=== PATIENT | male | born 1930 | race Caucasian/White ===

== ENCOUNTER 2018-01-17 06:41 | Observation (INO) | payer MEDICARE ==
[2018-01-17] MEDS ORDERED: Morphine VIAL* 4 MG/ML VIAL (1 ml vial) IV ONE (06:53)
[2018-01-17] MEDS ORDERED: Aspirin 81 mg CHEW TAB* 81 MG TAB.CHEW PO ONE (06:58)
--- OUTSIDE RECORDS SUMMARY | 2018-01-17 07:02 | XMS REPORT | Continuity of Care Document ---
:1930 External Reference #:[id number] Author Name Wade Bhumi Care Team Providers Name Role Phone Rc Hutton MD Primary Care Physician Unavailable Payers Type Date Identification Numbers Payment Provider Subscriber Effective: Policy Number: [id number] Medicare Milton Her 1995 PayID: [id number] [address] [place] [address] Policy Number: [id number] [facility] Milton Her PayID: [id number] [address] [place] [address] Advance Directives Description No Information Available Problems Date Description Provider Status Onset: 11/24/2016 Chest pain Tony Mckeon M.D., [facility], Active FASNC Onset: 02/10/2015 Chronic atrial fibrillation Tony Mckeon M.D., [facility], Active FASNC Onset: 02/10/2015 Electrocardiogram abnormal Tony Mckeon M.D., [facility], Active FASNC Family History Date Family Member(s) Problem(s) Comments General Coronary Artery Disease (CAD) Brother General Lung Cancer Father due to Unknown Causes () Father Alcoholism Mother due to Natural Causes () Second Brother due to Cancer, Lung () Fourth Brother 78 : (age 58 Years) First Sister due to Lung Cancer Social History Type Date Description Comments Sex Unknown Marital Status recently due to stage 4 cancer Marital Status Lives With Alone Occupation Retired Tobacco Use Start: Unknown End: Former Cigarette Smoker Unknown 1 Pack Daily Cigarette Use Quit - Age 54 Tobacco Use Start: Unknown Never Smoked Cigars Tobacco Use Start: Unknown Never Smoked A Pipe Smoking Status Reviewed: 01/04/18 Never Smoked A Pipe Smokeless Tobacco Never Used Smokeless Tobacco ETOH Use Rarely consumes alcohol Tobacco Use Start: Unknown End: Patient is a former Unknown smoker Recreational Drug Use Denies Drug Use Exercise Type/Frequency Exercises sporadically walking Allergies, Adverse Reactions, Alerts Date Description Reaction Status Severity Comments 10/04/2007 NKDA Active 09/14/2016 Seasonal Active 09/14/2016 Environmental Active Medications Medication Date Status Form Strength Qnty SIG Indications Ordering Provider Coumadin / Active Tablets 4mg 2.5mg mon, Unknown 0000 fri and then 4 mg tu, wed, thrus,sat, sun as directed ( adjusted Dr. Hutton) Latanoprost / Active Solution 0.005% 1 gtt both Unknown 0000 eyes at hs Metoprolol / Active Tablets ER 50mg 1 by mouth Unknown Succinate ER 0000 24HR every day Brimonidine / Active Solution 0.2% 1 drop to Unknown Tartrate 0000 each eye bid Dorzolamide / Active Solution 22.3-6.8mg 1 drop each Unknown HCL/Timolol 0000 /ml eye bid Maleate Multivitamin / Active Cap 1 cap po Unknown /Areds 0000 twice daily 2/Lute/Zeax Pravastatin / Active Tablets 40mg 1 tablet Unknown Sodium 0000 daily at bedtime Eylea / Active Solution 2mg/0.05ML injection Unknown 0000 every 6-12 weeks both eyes as directed Esomeprazole / Active Capsules 20mg 2 capsules Unknown Magnesium 0000 [address] by mouth at bed time Acetaminophen / Active Tablets 500mg 2 tabs 3 Unknown Extra Strength 0000 times daily as needed for pain Psyllium Husk / Active Powder Husk 95% 1 rounded Unknown 0000 tsp by mouth daily Calcium 600+D / Active Tablets 600-400mg- 1 by mouth Unknown High Potency 0000 Unit daily. Loratadine / Active Capsules 10mg once a day Unknown 0000 for allergies Lidocaine / Active Cream 4% apply to Unknown 0000 affected area 3 or 4 times daily prn Meclizine HCL / Active Chewtabs 25mg 1 tab every Unknown 0000 8 hours as needed for dizziness Zithromax Z-Chuy 12/25/ Hx Tablets 250mg 1Pack as per 465.9 Amaury E. 2008 - loco Amaya, M.D. 2014 Nexium 10/03/ Hx Capsules 40mg 90cap 1 PO qd Amaury Gaines 2007 - sudhir Amaya, M.D. 2014 Flomax 10/03/ Hx Caps ER 0.4mg 90cap 1 PO qd Amaury Gaines 2007 - 24HR sudhir Wrenie, M.D. 2007 Asa 10/03/ Hx 81mg 90uni 1 PO qd Amaury Gaines 2007 - ts Amaya, M.D. 2007 Multi-Vitamin 10/03/ Hx Tablets 90tab 1 PO qd Amaury Gaines 2007 - sudhir Amaya, M.D. 2015 Simvastatin / Hx Tablets 40mg 1 by mouth Unknown 0000 - every night 02/09/ at bedtime 2015 Esomeprazole / Hx 20mg 1 by mouth Unknown Sodium 0000 - every day 2016 Vitamin D3 High / Hx Capsules 500Units 1 by mouth Unknown Potency 0000 - twice daily 2016 Cetirizine HCL / Hx Tablets 10mg 1 by mouth Unknown 0000 - every day 2016 Triamcinolone / Hx Aerosol 55mcg/Act 1 spray Unknown Acetonide 0000 - each chacha 01/03/ every day 2017 Medications Administered in Office Medication Date Status Form Strength Qnty SIG Indications Ordering Provider Technetium TC Administered Injection Tony Pickard 99M 017 Ignacio Mckeon M.D., FACNuria, Per Unit Dose FASNC Up To 40 Millicuries Technetium TC Administered Injection Tony Pickard 99M 016 Ignacio Mckeon M.D., FACNuria, Per Unit Dose FASNC Up To 40 Millicuries Immunizations CPT Code Status Date Vaccine Lot # [id number] Given 02/15/1998 Pneumovax (History By Patient) 138iu Vital Signs Date Vital Result Comment 01/04/2018 10:09am Height 76 inches 6'4" Weight 235.00 lb w/o shoes Heart Rate 73 /min irreg BP Systolic Sitting 122 mmHg LA reg cuff BP Diastolic Sitting 80 mmHg LA reg cuff BP Systolic Standing 120 mmHg LA reg cuff BP Diastolic Standing 76 mmHg LA reg cuff Respiratory Rate 18 /min BMI (Body Mass Index) 28.6 kg/m2 11/24/2016 9:46am Height 76 inches 6'4" Weight 238.00 lb with shoes and sweatshirt Heart Rate 56 /min BP Systolic Sitting 138 mmHg Lue reg cuff BP Diastolic Sitting 70 mmHg Lue reg cuff BP Systolic Standing 132 mmHg Lue reg cuff BP Diastolic Standing 68 mmHg Lue reg cuff Respiratory Rate 16 /min BMI (Body Mass Index) 29.0 kg/m2 Ejection Fraction 50-55% echo 10/26/16 09/14/2016 3:56pm Height 76 inches 6'4" Heart Rate 79 /min BP Systolic Sitting 148 mmHg BP Diastolic Sitting 92 mmHg Respiratory Rate 16 /min Pain Level 0 O2 % BldC Oximetry 98 % 06/15/2016 1:31pm Height 76 inches 6'4" Weight 240.00 lb Heart Rate 76 /min irregular BP Systolic 138 mmHg BP Diastolic 94 mmHg Respiratory Rate 16 /min Pain Level 0 BMI (Body Mass Index) 29.2 kg/m2 03/16/2016 12:43pm Height 77 inches 6'5" Weight 240.00 lb with shoes Heart Rate 80 /min BP Systolic Sitting 140 mmHg Lue reg cuff BP Diastolic Sitting 80 mmHg Lue reg cuff BP Systolic Standing 140 mmHg LUe reg cuff BP Diastolic Standing 82 mmHg LUe reg cuff Respiratory Rate 17 /min BMI (Body Mass Index) 28.5 kg/m2 03/10/2015 9:48am Height 77 inches 6'5" Weight 235.50 lb w/o shoes Heart Rate 82 /min irreg BP Systolic Sitting 124 mmHg Rue, reg cuff BP Diastolic Sitting 74 mmHg Rue, reg cuff BP Systolic Standing 114 mmHg Rue BP Diastolic Standing 74 mmHg Rue Respiratory Rate 18 /min BMI (Body Mass Index) 27.9 kg/m2 Ejection Fraction 55-60% as of 02/11/15 echo 02/10/2015 12:28pm Height 77 inches 6'5" Weight 240.00 lb with shoes ( 235 lbs at home) Heart Rate 76 /min BP Systolic 130 mmHg Ra reg cuff BP Diastolic 80 mmHg Ra reg cuff BP Systolic Sitting 122 mmHg La reg cuff BP Diastolic Sitting 74 mmHg La reg cuff BP Systolic Standing 114 mmHg LA reg cuff BP Diastolic Standing 70 mmHg LA reg cuff Respiratory Rate 16 /min BMI (Body Mass Index) 28.5 kg/m2 12/25/2008 9:11am Heart Rate 76 /min BP Systolic Sitting 116 mmHg BP Diastolic Sitting 78 mmHg Body Temperature 99.0 F 01/24/2008 4:01pm Height 77 inches 6'5" Weight 242.00 lb Heart Rate 76 /min BP Systolic Sitting 142 mmHg BP Diastolic Sitting 72 mmHg BMI (Body Mass Index) 28.7 kg/m2 10/04/2007 11:10am Height 77 inches 6'5" Weight 236.00 lb Heart Rate 76 /min BP Systolic Sitting 154 mmHg BP Diastolic Sitting 84 mmHg BMI (Body Mass Index) 28.0 kg/m2 Results Test Date Facility Test Result H/L Range Note Laboratory test 04/09/2008 [facility] PSA,Diagnosti 0.0 NG/ML 0-[address] [place] [address] [phone] Ua Stat 11/25/2007 [facility] Ua Color YELLOW [address] [place] [address] [phone] Appearance-Urine CLEAR Specific [place]-Ur 1.020 1.010-1.030 Esterase-Urine TRACE Abnormal Negative Nitrite NEGATIVE Negative [id number]-Ch-EDP NEGATIVE Negative Protein-Urine NEGATIVE Negative PH-Urine 6.0 5-9 Blood-Urine 2+ Abnormal Negative Ketones-Urine NEGATIVE Negative Bilirubin-Ur NEGATIVE Negative Glucose-Urine NEGATIVE Negative Urinalysis W/Microscopic Stat 11/25/2007 [facility] Ua Color YELLOW [address] [place] [address] [phone] Appearance-Urine CLEAR Specific [place]-Ur 1.020 1.010-1.030 Esterase-Urine TRACE Abnormal Negative Nitrite NEGATIVE Negative Nezvhtuaqsfv-Qw-UDJ NEGATIVE Negative Protein-Urine NEGATIVE Negative PH-Urine 6.0 5-9 Blood-Urine 2+ Abnormal Negative Ketones-Urine NEGATIVE Negative Bilirubin-Ur NEGATIVE Negative Glucose-Urine NEGATIVE Negative WBC-Urine 20-25 Abnormal 0-5 RBC-Urine 10-15 Abnormal 0-2 Epith Cells-Ur RARE Bacteria-Urine 1+ Laboratory test 10/05/2007 [facility] Release Date 10/13/07 2, [address] [place] [address] [phone] Type & Screen 10/05/2007 [facility] Patient Blood A POSITIVE [address] [place] [address] [phone] Antibody Screen NEGATIVE Laboratory 10/05/2007 [facility] Whole [id number] A 4 test finding [address] Blood,Autologous <SEE NOTE> [place] [address] [facility] [phone] Hemoglobin/Hem 10/05/2007 [facility] Hemoglobin 15.0 g/dL 14. atacrit [address] 0-[address] [place] [address] 8.0 [phone] Hematocrit 43 % 42-52 Laboratory test 07/07/2007 [facility] PSA,Diagnostic 4.38 NG/ML High 0-[address] [place] [address] [phone] 1 * SERUM LEVELS OF PSA MEASURED USING THE RAGHAV LELO ACCESS HYBRITECH IMMUNOASSAY SHOULD NOT BE INTERPRETED ABSOLUTE EVIDENCE OF THE PRESENCE OR ABSENCE OF DISEASE. THE PSA VALUE SHOULD BE USED IN CONJUNCTION WITH OTHER PERTINENT CLINICAL DIAGNOSTIC PROCEDURES. A PSA value in the range of 0.1 to 0.6 ng/ml is indeterminate if being used as an indicator of recurrent or residual disease. . 2 SURGERY 10/11/07 3 ANY BLOOD NOT GIVEN WILL BE RELEASED AT 0700 ON THE ABOVE DATE UNLESS DOCTOR NOTIFIES LAB OTHERWISE. 4 [id number] AP [facility] TRANSFUSED 10/11/07 1221 5 * SERUM LEVELS OF PSA MEASURED USING THE RAGHAV LELO ACCESS HYBRITECH IMMUNOASSAY SHOULD NOT BE INTERPRETED ABSOLUTE EVIDENCE OF THE PRESENCE OR ABSENCE OF DISEASE. THE PSA VALUE SHOULD BE USED IN CONJUNCTION WITH OTHER PERTINENT CLINICAL DIAGNOSTIC PROCEDURES. Procedures Date Code Description Status 01/04/2018 77278 EKG Tracing & Interpretation Completed 11/24/2016 24084 EKG Tracing & Interpretation Completed 10/26/2016 78771 ECHO Transthoracic, Real-Time 2D With Doppler And Color Completed Flow 10/26/2016 91582 ECHO Transthoracic, Real-Time 2D With Doppler And Color Completed Flow 10/04/2016 80103 Stress Test Completed 10/04/2016 84007 Myocardial Perfusion Imaging Tomographic (Spect) Multiple Completed Studies 03/16/2016 95302 EKG Tracing & Interpretation Completed 03/10/2016 56143 ECHO Transthoracic, Real-Time 2D With Doppler And Color Completed Flow 03/03/2015 93179 Stress Test Completed 03/03/2015 99757 Myocardial Perfusion Imaging Tomographic (Spect) Multiple Completed Studies 02/11/2015 70282 ECHO Transthoracic, Real-Time 2D With Doppler And Color Completed Flow 02/10/2015 14346 EKG Tracing & Interpretation Completed 10/04/2007 97993 EKG Tracing & Interpretation Completed Encounters Type Date Location Provider Dx Diagnosis Office Visit 01/04/2018 [facility] Tony Pickard I48.2 Chronic atrial 10:45a Of Kiara Mckeon M.D., fibrillation [facility], [place] Office Visit 11/24/2016 [facility] Tony Pickard R07.9 Chest pain, 10:15a Of Kiara Mckeon M.D., unspecified FACC, FASNC I48.2 Chronic atrial fibrillation Office Visit 09/14/2016 3:45p [facility], H92.01 Otalgia, right C.M.A. AT M.D. ear Amoret H93.13 Tinnitus, bilateral R42 Dizziness and giddiness Office Visit 06/15/2016 1:30p [facility], H92.01 Otalgia, right C.M.A. AT M.D. ear Amoret H93.13 Tinnitus, bilateral H61.23 Impacted cerumen, bilateral R42 Dizziness and giddiness Office Visit 03/16/2016 [place] Tony Pickard I48.2 Chronic atrial 1:00p Cardiology Brandie Mckeon M.D., fibrillation [facility] FACNuria, FASLYDIA Office Visit 03/10/2015 Johnnie Pickard I48.2 Chronic atrial 10:00a [facility] Visit 02/10/2015 Johnnie Pickard R94.31 Abnormal 1:00p Cardiology Brandie Mckeon M.D., electrocardiogram [facility] [EKG] I48.2 Chronic atrial fibrillation Office Visit 12/25/2008 9:00a DO Not Use Kiara Gaines 465.9 URI Upper AT Mino Conde M.D. Respiratory Infections Acute Unspec Sites Office Visit 01/24/2008 3:30p [place] Jerome Gaines 723.1 [facility] AT Erika Conde [facility] Office Visit 10/04/2007 11:00a [place] Jerome Gaines V72.81 Examination Assoc AT Erika Conde [facility] Cardiovascular 530.81 Esophageal Reflux 723.1 Cervicalgia Plan of Treatment 01/04/2018 - Tony Mckeon M.D., [facility], YLYTZZ49.2 Chronic atrial fibrillationComments:As discussed, I feel your heart is doing well. Please continue to exercise.Follow up:one year
--- NOTE | 2018-01-17 07:14 | ED ---
HPI Chest Pain - HPI Summary HPI Summary: Patient is a 87yo M with a PMH of HTN,A fib, pulmonary nodules and prostatectomy presenting to the ED with acute onset chest pain (ache) worse with breathing at 3:30a which then began to radiate to the R shoulder to the R elbow. Approximately 1 hour later, he developed aching pain between his shoulder blades. Despite 3 nitros and 324 chewable aspirin via EMS, his symptoms remain. He states his last echocardiogram was approximately 2 years ago and is due for one in the next few months. Symptoms are worse with breathing deep and he also endorses shortness of breath. Symptoms are also worsened with exertion and better with rest. Symptoms are not changed with positioning. - History of Current Complaint Chief Complaint: EDChestPainROMI Time Seen by Provider: 01/17/18 06:45 Hx Obtained From: Patient Onset/Duration: Started Hours Ago Timing: Constant Initial Severity: Moderate Current Severity: Moderate Pain Intensity: 8 Pain Scale Used: 0-10 Numeric Chest Pain Location: Discrete at: - misternal radiating to the left shoulder MRI Chest Pain Radiates: Yes Chest Pain Radiates To:: Back, Shoulder, Arm Character: Dull/Aching, Pressure/Squeezing Alleviating Factor(s): Nothing - Allergy/Home Medications Allergies/Adverse Reactions: Allergies Allergy/AdvReac Type Severity Reaction Status Date / Time No Known Allergies Allergy Verified 01/17/18 07:55 Home Medications: Home Medications Brimonid/Timolol 0.2/0.5%(NF) [Combigan 0.2/0.5% (NF)] 1 drop BOTH EYES BID 12/25 [History Confirmed 01/17/18] Meclizine TAB* [Antivert 12.5 TAB*] 12.5 mg PO QID 01/17/18 [History Confirmed 01/17/18] PMH/Surg Hx/FS Hx/Imm Hx Previously Healthy: Yes Endocrine/Hematology History: Denies: Hx Diabetes, Hx Systemic Lupus Erythematosus Cardiovascular History: Reports: Other Cardiovascular Problems/Disorders - ATRIAL FIBRILLATION- ON COUMADIN FOR- LAST DOSE ON 06/03/14 Denies: Hx Congestive Heart Failure, Hx Hypertension, Hx Pacemaker/ICD Respiratory History: Denies: Hx Asthma GI History: Reports: Hx Gastroesophageal Reflux Disease - ON MEDICATION FOR, Hx Hiatal Hernia History: Denies: Hx Dialysis, Hx Renal Disease Musculoskeletal History: Reports: Hx Arthritis - NECK Denies: Hx Rheumatoid Arthritis, Hx Osteoporosis Sensory History: Reports: Hx Cataracts - BILATERAL, Hx Contacts or Glasses - GLASSES, Hx Glaucoma - BILATERAL Denies: Hx Hearing Aid Opthamlomology History: Reports: Hx Cataracts - BILATERAL, Hx Contacts or Glasses - GLASSES, Hx Glaucoma - BILATERAL Psychiatric History: Denies: Hx Panic Disorder - Cancer History Cancer Type, 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 Hx Chemotherapy: No - Surgical History Surgery Procedure, Year, and Place: prostate removal 2007; tonisllectomy at age 8; broken jaw while serving in the [employer] on the jaw; RT knee arthroscopic procedure for meniscus. CATARACTS BILATERAL Hx Anesthesia Reactions: No - Immunization History Hx Pertussis Vaccination: No Immunizations Up to Date: Yes Infectious Disease History: No Infectious Disease History: Denies: Traveled Outside the [place] in Last 30 Days - Social History Occupation: Unemployed, Retired Lives: Alone Alcohol Use: Rare Hx Substance Use: No Substance Use Type: Reports: None Hx Tobacco Use: Yes Smoking Status (MU): Former Smoker Amount Used/How Often: 1 1/2 PPD X 25 YEARS+ Review of Systems Constitutional: Negative Negative: Fever, Chills, Fatigue, Skin Diaphoresis Positive: Chest Pain. Negative: Palpitations Positive: Shortness Of Breath. Negative: Cough Genitourinary: Negative Positive: no symptoms reported, see HPI Negative: Arthralgia, Myalgia Skin: Negative All Other Systems Reviewed And Are Negative: Yes Physical Exam Triage Information Reviewed: Yes Vital Signs On Initial Exam: Initial Vitals Pulse Resp BP Pulse Ox 90 5 143/90 98 01/17/18 06:45 01/17/18 06:45 01/17/18 06:45 01/17/18 06:45 Vital Signs Reviewed: Yes Appearance: Positive: Well-Appearing, Well-Nourished Skin: Positive: Skin Color Reflects Adequate Perfusion Head/Face: Positive: Normal Head/Face Inspection Neck: Positive: Supple Respiratory/Lung Sounds: Positive: Clear to Auscultation, Breath Sounds Present Cardiovascular: Positive: IRR. Negative: Leg Edema Left, Leg Edema Right Musculoskeletal: Positive: Normal, Strength/ROM Intact Neurological: Positive: Sensory/Motor Intact Psychiatric: Positive: Normal Diagnostics - Vital Signs Vital Signs Temp Pulse Resp BP Pulse Ox 01/17/18 07:00 88 19 95 01/17/18 06:47 99 22 97 01/17/18 06:46 97.9 F 64 14 143/90 97 01/17/18 06:45 90 5 143/90 98 - Laboratory Result Diagrams: 01/17/18 07:02 01/17/18 07:02 Lab Statement: Any lab studies that have been ordered have been reviewed, and results considered in the medical decision making process. Chest Pain Course/Dx - Course Course Of Treatment: Patient's evaluated for mid sternal aching chest pressure radiating to the left arm without associated jaw pain or nausea. He is also endorsing shortness of breath and pain to the back in between the shoulder blades. Symptoms have been present times approximately 4 hours. Labs obtained which are unremarkable including a troponin of 0.00. Chest x-ray obtained which shows COPD. Pleural calcification most pronounced along the right lower lung similar to previous CT examination. Questionable airspace disease at the right lower lung which is partially obscured by the pleural calcification. On physical examination, patient appears well, irregular rate and rhythm, crackles in the right lower lung, no abdominal pain on deep palpation. He is given 4 mg morphine in the ED with minimal relief. Discussed case with Dr. Mauricio who agrees to see and admit patient. - Diagnoses Provider Diagnoses: Chest pain - Provider Notifications Discussed Care Of Patient With: Ronald Mauricio Discharge - Sign-Out/Discharge Documenting (check all that apply): Patient Departure - Discharge Plan Condition: Stable Disposition: ADMITTED TO [facility] - Billing Disposition and Condition Condition: STABLE Disposition: Admitted to [facility]
[2018-01-17 07:23] LABS: ABS Basophils 0.1 10^3/ul (0-0.2); ABS Eosinophils 0.2 10^3/ul (0-0.6); ABS Lymphocytes 0.9 10^3/ul (1.0-4.8); ABS Monocytes 0.8 10^3/ul (0-0.8); ABS Neutrophils 7.8 10^3/ul (1.5-7.7); ABS Nucleated RBC 0 10^3/ul; Eosinophil % 1.9 %; Hematocrit 45 % (42-52); Hemoglobin 14.7 g/dl (14.0-18.0); Lymphocyte % 8.9 %; Mean Corpuscular HGB Conc 32 g/dl (31-36); Mean Corpuscular Hemoglobin 29 pg (27-31); Mean Corpuscular Volume 90 fL (80-94); Mean Platelet Volume 10.3 fL (7.4-10.4); Nucleated Red Blood Cells % 0; Platelet Count 159 10^3/ul (150-450); Red Blood Count 5.05 10^6/ul (4.00-5.40); Red Cell Distribution Width 15 % (10.5-15); White Blood Count 9.7 10^3/ul (3.5-10.8)
[2018-01-17 07:40] LABS: INR 2.64 (0.77-1.02)
[2018-01-17 08:15] LABS: EGFR Non-African American 81.2 (>60)
[2018-01-17] MEDS ORDERED: Magnesium Hydroxide LIQ* 30 ML UDC PO PRN (10:11)
[2018-01-17] MEDS ORDERED: Acetaminophen TAB* 325 MG PO PRN (10:11)
--- NOTE | 2018-01-17 14:11 | HP ---
AMENDED REPORT NOW INCLUDES DESIGNATED COSIGNER CC: Dr. Rc Hutton * HISTORY AND PHYSICAL: DATE OF ADMISSION: 01/17/18 PROVIDER: Heather Mckeon NP ATTENDING PHYSICIAN: Dr. Mauricio * (dictated by Heather Mckeon NP). PRIMARY CARE PHYSICIAN: Dr. Rc Hutton. CHIEF COMPLAINT: Chest pain. HISTORY OF PRESENT ILLNESS: Mr. Her is an 87-year-old male with a past medical history of AFib, on Coumadin; hypertension; history of pulmonary nodules with a negative biopsy in 2016; prostate cancer, status post prostatectomy; and GERD, who presented to the ED today after experiencing chest pain that woke him from sleep. He describes the pain as an aching in his left chest that radiated to his back and down his left arm to his elbow. The pain is worse with deep breath, but not with position change, movement or palpation. The patient denied nausea, diaphoresis, shortness of breath, palpitations, heart racing. He denies any lower extremity edema or shortness of breath with exertion and he is able to climb stairs regularly without chest pain or shortness of breath. The patient was in his usual state of health prior to this incident with no fever or chills, no cough, no abdominal pain or recent illness. Of note, the patient did receive nitro and aspirin from EMS and his symptoms persisted at that time. In the ED, the patient's vital signs were stable. He had an EKG, which showed known AFib with no evidence of ischemia or infarction. He has had troponins, which were negative x2 and a D-dimer, which was negative. The hospitalist team was asked to admit this patient for further workup of his chest pain. By the time of my examination, the patient's chest pain had improved to a 2/10 with morphine and was no longer radiating to his back or down his arms, but was now localized to the left side of his chest. The patient will undergo a stress test tomorrow. PAST MEDICAL HISTORY: 1. AFib, on Coumadin. 2. Hypertension. 3. Pulmonary nodules with a negative biopsy in 2016. 4. Prostate cancer, status post prostatectomy. 5. GERD. PAST SURGICAL HISTORY: Prostatectomy, tonsillectomy as a child, jaw surgery, and right knee arthroscopic procedure. HOME MEDICATIONS: 1. Warfarin 2 mg p.o. q.p.m. on Tuesday and Tuesday. 2. Warfarin 4 mg p.o. q.p.m. on Tuesday, Tuesday, Tuesday, , Tuesday 3. Pravastatin 20 mg p.o. at bedtime. 4. Toprol-XL 50 mg p.o. q.p.m. 5. Meclizine 12.5 mg p.o. 4 times daily as needed. 6. Xalatan 0.005% one drop both eyes at bedtime. 7. Nexium 40 mg p.o. at bedtime. 8. Cosopt 1 drop both eyes b.i.d. 9. Combigan 1 drop both eyes b.i.d. 10. AREDS2 one cap p.o. b.i.d. 11. Acetaminophen 325 mg p.o. q.6 hours p.r.n. ALLERGIES: The patient has no known allergies. FAMILY HISTORY: The patient has a brother who has had multiple stents. The patient has no diabetes in his family and the patient's sister and brother both have a history of lung cancer. SOCIAL HISTORY: The patient is a former smoker and quit in 1984. He smoked 1-1 /2 packs per day for 25 years. The patient endorses rare alcohol use and the patient would like to be a full code. His medical decision makers are his daughter, Betty Pepper and son, Neri Her. REVIEW OF SYSTEMS: I performed a 14-point review of systems. All the pertinent positives and negatives are mentioned in the history of present illness. The remaining review of systems are negative. PHYSICAL EXAMINATION GENERAL APPEARANCE: The patient is alert, pleasant, and appears to be in no acute distress. VITAL SIGNS: Temperature 98.7, heart rate 100, respiratory rate 20, oxygen saturation 93% on room air, blood pressure 140/80. HEENT: Normocephalic, atraumatic. Pupils are equal, round, and reactive to light and accommodation. EOMs are intact. NECK: Supple. No lymphadenopathy noted. No JVD appreciated. RESPIRATORY: No accessory muscle use. Lungs are clear to auscultation. Normal work of breathing. CARDIAC: Irregular rate and rhythm. S1 and S2 are present. There are no murmurs, rubs, or gallops heard. ABDOMEN: Soft, nontender, nondistended. Bowel sounds x4. EXTREMITIES: No lower extremity edema. DP and PT pulses are 2+ and symmetric. MUSCULOSKELETAL: No clubbing or cyanosis noted. The patient exhibited 5/5 strength in all 4 extremities. NEURO: The patient is alert and oriented x3. PSYCH: The patient is calm and cooperative. SKIN: There are no rashes or abnormalities seen. DIAGNOSTIC STUDIES/LAB DATA: Sodium 139, potassium 4.4, chloride 105, carbon dioxide 27, anion gap 7, BUN 20, creatinine 0.89, glucose 121, lactic acid 1.7, calcium 9.4, mag 2.0. Total bili 0.6, AST 17, ALT 11, alk phos 60. CK-MB 2.3, troponin 0 on 2 occasions, BNP 154. Total protein 6.3, albumin 3.7, globulin 2.6, albumin/globulin ratio 1.4. TSH 1.59. INR 2.64, on Coumadin; PTT 48.2; D- dimer less than 200. White blood cell count 9.7, hemoglobin 14.7, hematocrit 45 , platelets 159. Diagnostics: Chest x-ray, impression: COPD, pleural calcification most pronounced along the right lower lung similar to previous CT examination, questionable airspace disease of the right lower lung, which is partially obscured by pleural calcification. EKG: EKG with AFib. No evidence of ischemia or infarctions. ASSESSMENT: The patient is an 87-year-old male with a past medical history significant for atrial fibrillation, on Coumadin; hypertension; pulmonary nodules, who presented to the ED with left-sided chest pain and will be admitted to the hospitalist service for further cardiac workup. PLAN: 1. Chest pain. Pulmonary embolism has been ruled out with negative D-dimer. While the chest x-ray suggested there might be some questionable airspace disease in the right lower lung, the patient has no fever, no white count and no symptoms suggestive of respiratory infection, so this is less likely at this time. The patient will be admitted and monitored on telemetry. He will have an additional troponin and EKG to complete the set of 3 serial measurements. Initial troponins have been negative and initial EKG has not showed any acute changes. The patient will undergo a stress test in the morning. The patient's pain was relieved with morphine in the ED and he can continue to receive this as needed if the pain returns. 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 He did have a negative stress test in September 2016. His last echo was October 2016, which showed a normal sized LV with an EF of 50% to 55% with severe left atrial dilation and [id number] RV dilation. Please see the report in [employer] for a full description. 2. AFib. The patient is rate controlled on metoprolol. I will continue this. The patient is anticoagulated on Coumadin and I will continue this as well. His INR is therapeutic and we will continue to do daily INRs. 3. History of pulmonary nodules. Chest x-ray showed pleural calcifications along the right lower lung, which was similar to previous CT examination in 2016. The patient did have a lung biopsy in 2016, which showed no evidence of malignancy. The patient can consider additional outpatient monitoring; however, the chest x-ray does not appear to show any new nodules. 4. History of GERD. Continue Nexium. 5. Diet: The patient can be on a heart-healthy diet without caffeine. Prior to his stress test, he should be n.p.o. after midnight for stress test in the morning. 6. DVT prophylaxis: The patient is on Coumadin and can have SCDs. 7. Code status: The patient is full code. 8. Disposition: Observation. Anticipate discharge to home when medically stable. TIME SPENT: Time spent for this admission was 60 minutes and 35 minutes were spent with the patient discussing medications, past medical history and events leading up to their arrival today and performing a physical exam. The case has been reviewed with the attending, Dr. Mauricio, who agrees with the plan of care. HEATHER MCKEON, NBA [id number]/[facility] #: [id number] LUANN
[2018-01-17] MEDS ORDERED: Warfarin TAB(*) 4 MG PO SCH (17:00)
[2018-01-17] MEDS ORDERED: Nitroglycerin 0.2 MG/HR PATCH* (5 MG) TRANSDERM SCH (18:00)
[2018-01-17] MEDS ORDERED: Metoprolol Succinate XL TAB* 50 MG PO SCH (18:00)
[2018-01-17] MEDS: Morphine VIAL* 4 MG/ML VIAL (1 ml vial) IV PRN (18:05)
[2018-01-17] MEDS: [UNRECOGNIZED DRUG - OTHER] BOTH EYES SCH (20:31)
[2018-01-17] MEDS: TIMOLOL BOTH EYES SCH (20:31)
[2018-01-17] MEDS: BRIMONID BOTH EYES SCH (20:31)
[2018-01-17] MEDS ORDERED: Omeprazole CAP* 20 MG PO SCH (21:00)
[2018-01-17] MEDS ORDERED: Latanoprost 0.005%* 2.5 ml BTL BOTH EYES SCH (21:00)
[2018-01-17] MEDS ORDERED: Atorvastatin* 10 MG TAB PO SCH (21:00)
[2018-01-17] MEDS: Analgesic BALM* 114 GM TOPICAL PRN (23:12)
[2018-01-18] MEDS: Morphine VIAL* 4 MG/ML VIAL (1 ml vial) IV PRN (02:46)
[2018-01-18] MEDS: Analgesic BALM* 114 GM TOPICAL PRN (02:51)
[2018-01-18] MEDS ORDERED: Nitro Patch/OINT Remove PATCH OFF SCH (06:00)
[2018-01-18 06:26] LABS: INR 3.29 (0.77-1.02)
[2018-01-18 06:46] LABS: EGFR Non-African American 78.2 (>60)
[2018-01-18] MEDS: TIMOLOL BOTH EYES SCH (07:38)
[2018-01-18] MEDS: BRIMONID BOTH EYES SCH (07:38)
[2018-01-18] MEDS: [UNRECOGNIZED DRUG - OTHER] BOTH EYES SCH (07:39)
[2018-01-18] MEDS ORDERED: Regadenoson* 0.4 MG/5 ML SYRINGE ONE (10:47)
[2018-01-18] MEDS ORDERED: Aminophylline IV* 25 MG/ML 10 ML VIAL ONE (10:47)
--- NOTE | 2018-01-18 14:09 | PN ---
Subjective Date of Service: 01/18/18 Interval History: Pt resting comfortably in chair, NAD. Reports chest pain has resolved entirely. No chest pain with respiration, palpation, or position change. Last morphine was 2:46 am. Denies shortness of breath, cough, dizziness, headache, abdominal pain, nausea/vomiting, diarrhea, numbness or tingling in extremities. Objective Active Medications: Acetaminophen (Tylenol Tab*) 650 mg PO Q4H PRN PRN Reason: FEVER/PAIN Last Admin: 01/17/18 17:19 Dose: 650 mg Atorvastatin Calcium (Lipitor*) 5 mg PO BEDTIME [facility] Last Admin: 01/17/18 20:28 Dose: 5 mg Brimonidine/Timolol (Combigan 0.2/0.5% (Nf)) 1 drop BOTH EYES BID [facility] Last Admin: 01/18/18 07:38 Dose: Not Given Latanoprost (Xalatan 0.005%*) 1 drop BOTH EYES BEDTIME [facility] Last Admin: 01/17/18 20:27 Dose: 1 drop Magnesium Hydroxide (Milk Of Fabmelinda Liq*) 30 ml PO Q4H PRN PRN Reason: CONSTIPATION Metoprolol Succinate (Toprol Xl Tab*) 50 mg PO QPM [facility] Last Admin: 01/17/18 17:16 Dose: 50 mg Morphine Sulfate (Morphine Vial*) 2 mg IV Q4H PRN PRN Reason: PAIN - MODERATE TO SEVERE Last Admin: 01/18/18 02:46 Dose: 2 mg Multi-Ingredient Liniment/Rub (Messi Castro*) 1 applic TOPICAL TID PRN PRN Reason: PAIN Last Admin: 01/18/18 02:51 Dose: 1 admin Nitroglycerin (Nitroglycerin 5 Mg Patch*) 1 patch TRANSDERM DAILY@1800 [facility] Last Admin: 01/17/18 18:05 Dose: 1 patch Non-Formulary Medication (Dorzolamide Hcl-Timolol Maleat [Cosopt Pf]) 1 drop BOTH EYES BID [facility] Last Admin: 01/18/18 07:39 Dose: Not Given Omeprazole (Prilosec Cap*) 20 mg PO BEDTIME [facility] Last Admin: 01/17/18 20:29 Dose: 20 mg Pharmacy Profile Note (Nitro Patch/Oint Remove*) 1 note PATCH OFF 0600 [facility] Last Admin: 01/18/18 05:00 Dose: 1 patch Warfarin Sodium (Coumadin Tab(*)) 2 mg PO MoFr@1700 [facility] Warfarin Sodium (Coumadin Tab(*)) 4 mg PO SuTuWeThSa@1700 [facility] Last Admin: 01/17/18 17:16 Dose: 4 mg Vital Signs - 8 hr 01/18/18 07:38 Temperature 97.8 F Pulse Rate 53 Respiratory 18 Rate Blood Pressure 126/78 (mmHg) O2 Sat by Pulse 98 Oximetry Oxygen Devices in Use Now: None Eyes: No Scleral Icterus, PERRLA Ears/Nose/Mouth/Throat: NL Teeth, Lips, Gums Neck: NL Appearance and Movements; NL JVP Respiratory: Symmetrical Chest Expansion and Respiratory Effort, Clear to Auscultation Cardiovascular: NL Sounds; No Murmurs; No JVD, No Edema, - - Irregular rate and rhythm Abdominal: NL Sounds; No Tenderness; No Distention Extremities: No Edema Skin: No Rash or Ulcers Neurological: Alert and Oriented x 3, NL Muscle Strength and Tone Nutrition: Taking PO's Result Diagrams: 01/17/18 07:02 01/18/18 05:47 Assess/Plan/Problems-Billing Assessment: 87 year old male presented to ED with left sided chest pain that radiated to left arm and back. Neg trop and EKG x3. Low risk stress test. Chest pain has resolved. - Patient Problems (1) Chest pain Current Visit: Yes Status: Acute Code(s): R07.9 - CHEST PAIN, UNSPECIFIED SNOMED Code(s): 50884977 Comment: - Now resolved. Differentials include cardiac vs respiratory vs msk - Trop neg x3, EKG without acute ischemic changes, low risk stress test, cardiac origin unlikey - CXR with stable airspace disease similar to prior CT. No fever, white count or symptoms to suspect respiratory infection. Negative D-dimer, so PE unlikely. - MSK: pt does have history of arthritis, so this could represent arthritic pain. Will do shoulder XR to further evaluate. (2) Afib Current Visit: Yes Status: Acute Code(s): I48.91 - UNSPECIFIED ATRIAL FIBRILLATION SNOMED Code(s): 23509991 Comment: - Rate controlled on metoprolol - Anticuagulated with coumadin (3) GERD (gastroesophageal reflux disease) Current Visit: Yes Status: Acute Code(s): K21.9 - GASTRO-ESOPHAGEAL REFLUX DISEASE WITHOUT ESOPHAGITIS SNOMED Code(s): 862823110 Comment: - Continue nexium (4) DVT prophylaxis Current Visit: Yes Status: Acute Code(s): HGH8277 - SNOMED Code(s): 184336907 Comment: - On coumadin (5) Full code status Current Visit: Yes Status: Acute Code(s): Z78.9 - OTHER SPECIFIED HEALTH STATUS SNOMED Code(s): 749659875 Status and Disposition: Likely discharge today
[2018-01-18 15:19] VITALS: BP 125/76
--- NOTE | 2018-01-19 08:48 | DS ---
CC: Dr. Rc Hutton; Dr. Mckeon * DISCHARGE SUMMARY: DATE OF ADMISSION: DATE OF DISCHARGE: 01/18/18 PROVIDER: Heather Mckeon NP ATTENDING IN THE HOSPITAL: Dr. Mauricio * (dictated by Heather Mckeon NP). PRIMARY CARE PROVIDER: Dr. Rc Hutton. OUTPATIENT FIRST COAT OPERATOR: Dr. Mckeon. PRIMARY DIAGNOSIS: Chest pain. SECONDARY DIAGNOSES: 1. Atrial fibrillation. 2. Pulmonary nodules. 3. Gastroesophageal reflux disease. MEDICATIONS ON DISCHARGE: 1. Warfarin 2 mg p.o. Tuesday and Tuesday. 2. Warfarin 4 mg p.o. Tuesday, Tuesday, Tuesday, , and Tuesday. 3. Pravastatin 20 mg p.o. at bedtime. 4. Metoprolol succinate 50 mg p.o. q.p.m. 5. Meclizine 12.5 mg p.o. four times a day p.r.n. 6. Xalatan 0.005% one drop both eyes at bedtime. 7. Nexium 40 mg p.o. at bedtime. 8. Cosopt 1 drop both eyes b.i.d. 9. Combigan 1 drop both eyes b.i.d. 10. AREDS2 one cap p.o. b.i.d. 11. Acetaminophen 325 mg p.o. q.6 hours p.r.n. DIAGNOSTICS WHILE IN THE HOSPITAL: 1. Chest x-ray: COPD, pleural calcification was pronounced along the right lower lung, similar to previous CT examination, questionable airspace disease of the right lower lung, which is partially obscured by the pleural calcification. 2. Nuclear medicine scan, impression: No compelling evidence for stress- induced ischemia, fixed thinning of the apex, which may be physiologic or reflect previous infarct, hypokinesia of the septum, normal range estimated LVEF and upper normal range end- diastolic volume. 3. Shoulder x-ray of the left shoulder, impression: [id number] osteoarthritic change. HOSPITAL COURSE: Mr. Her is an 87-year-old male with a past medical history of AFib, on Coumadin; history of pulmonary nodules with a negative biopsy in 2016; prostate cancer, status post prostatectomy; GERD, who presented to the ED yesterday after experiencing chest pain that woke him from sleep. He described the pain as an aching in the left side of his chest that radiated to his left shoulder and the upper part of his left arm as well as to his back. The pain was made worse with a deep breath, but did not change with changes in position and did not get worse with palpation. The patient was given nitro by EMS, which did not improve the pain. In the ED the patient denied any shortness of breath, nausea, diaphoresis, palpitations, heart racing, lower extremity edema, or shortness of breath with exertion. The patient was in his usual state of health prior to this with no cough, fevers, chills, nausea, vomiting, diarrhea. The patient had troponins, which were negative x3 as well as EKGs, which showed his known AFib without evidence of ischemia or infarction. The patient did eventually achieve pain relief with morphine and was scheduled for a stress test in the morning. The patient did undergo this test, which showed no compelling evidence for stress-induced ischemia and an assessment of low risk based on nuclear portion (see above for summary). At the time of my exam after the patient's stress test, the patient was no longer endorsing any chest pain at rest, with exertion, or with deep breath. His last dose of morphine was over 12 hours ago, so was no longer providing pain relief. Initial differentials included PE and pneumonia, but the patient had a negative D-dimer and had no respiratory symptoms and no consolidation on CXR, making these less likely. Also on the differential was musculoskeletal pain. I did also do a shoulder x-ray, which demonstrated osteoarthritis and this could be a likely source of the patient's pain. DISPOSITION: The patient is stable for discharge to home. DIET: The patient should follow a heart-healthy diet. ACTIVITY: Activity as tolerated. FOLLOWUP: The patient is instructed to follow up with his primary care physician in 4 to 7 days. TIME SPENT: Time spent on this discharge was 35 minutes. HEATHER MCKEON NP [id number]/[facility] #: [id number] MTDThai
[2018-01-20] MEDS ORDERED: Warfarin TAB(*) 2 MG PO SCH (17:00)
== END 2018-01-18 17:29 | disposition home or self-care (01) ==
LOC: ED 06:41 → MEDTELE 10:11
PROVIDERS: ADMIT Internal Medicine; ATTEND Internal Medicine
DX: R07.9 Chest pain, unspecified (principal); I48.91 Unspecified atrial fibrillation; R91.1 Solitary pulmonary nodule; K21.9 Gastro-esophageal reflux disease without esophagitis; Z79.01 Long term (current) use of anticoagulants; Z85.46 Personal history of malignant neoplasm of prostate
CPT/HCPCS: 36415; 71046; 78452; 80053; 82553; 83605; 83735; 83880; 84443; 84484; 85025; 85379; 85610; 85730; 93005; 93017; 96374; 96375; 96376; 99284; A9270-GY; A9502; G0378; J0280; J2270; J2785

== ENCOUNTER 2018-02-08 13:46 | Observation (INO) | payer MEDICARE ==
[2018-02-08 14:15] LABS: ABS Basophils 0.1 10^3/ul (0-0.2); ABS Eosinophils 0.1 10^3/ul (0-0.6); ABS Neutrophils 9.6 10^3/ul (1.5-7.7); ABS Nucleated RBC 0 10^3/ul; Eosinophil % 0.9 %; Hematocrit 44 % (42-52); Hemoglobin 14.4 g/dl (14.0-18.0); Lymphocyte % 8.3 %; Mean Corpuscular HGB Conc 32 g/dl (31-36); Mean Corpuscular Hemoglobin 29 pg (27-31); Mean Corpuscular Volume 89 fL (80-94); Nucleated Red Blood Cells % 0; Platelet Count 226 10^3/ul (150-450); Red Blood Count 4.99 10^6/ul (4.00-5.40); Red Cell Distribution Width 15 % (10.5-15); White Blood Count 11.8 10^3/ul (3.5-10.8)
--- NOTE | 2018-02-08 14:24 | ED ---
HPI Chest Pain - HPI Summary HPI Summary: An 87 y/o male presents to [facility] with a chief complaint of chest pain which he describes as dull/stabbing pain since eating a sandwich with horseradish on . He also claims that he had similar CP one week [employer] by eating a " hamburger soup with too many tomatoes". He claims that his CP is right sided and occasionally radiates to his right shoulder. He rates his pain as 5/10 and claims that his pain is worsened to a 7/10 with deep breath. He also c/o cough and gas, but denies fever. He lives by himself. Cardiac stress test 01/17/18. Nuclear medicine stress test showed no evidence for ischemia and normal LVEF. Hx of pulmonary nodules with a negative biopsy in 2016, a-fib, GERD and pleural calcification on the right side. 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 He has a Hx of a-fib and is on Warfarin. He claims that he is always in a-fib. He has a Hx of wet macular degeneration and gets shots in his eyes. His primary care physician is Dr. Hutton, who referred the patient to the ED. He states that he takes two Nexium at bedtime. He states that no medicine has alleviated his pain. Vital signs in room: HR ranging from 100s to 150s at the moment is 117 bpm, O2 Sat 95, BP 149/106. Home Medications Medication Instructions Recorded Confirmed Type Acetaminophen 325 mg PO Q6HR PRN 06/04/14 01/17/18 History Areds 2 1 cap PO BID 06/04/14 01/17/18 History Dorzolamide HCl-Timolol Maleat 1 drop BOTH EYES BID 06/04/14 01/17/18 History [Cosopt Pf] Esomeprazole Magnesium [Nexium] 40 mg PO BEDTIME 06/04/14 01/17/18 History Latanoprost 0.005% OPTH (NF) 1 drop BOTH EYES BEDTIME 06/04/14 01/17/18 History [Xalatan 0.005% OPTH*] Metoprolol Succinate [Toprol Xl] 50 mg PO QPM 06/04/14 01/17/18 History Pravastatin Sodium [Pravachol] 20 mg PO BEDTIME 06/04/14 01/17/18 History Warfarin TAB(*) [Coumadin TAB(*)] 2 mg PO QPM 06/04/14 01/17/18 History Warfarin TAB(*) [Coumadin TAB(*)] 4 mg PO QPM 06/04/14 01/17/18 History Brimonid/Timolol 0.2/0.5%(NF) 1 drop BOTH EYES BID 01/17/18 01/17/18 History [Combigan 0.2/0.5% (NF)] Meclizine TAB* [Antivert 12.5 TAB*] 12.5 mg PO QID 01/17/18 01/17/18 History - History of Current Complaint Chief Complaint: EDChestPainROMI Time Seen by Provider: 02/08/18 14:00 Hx Obtained From: Patient Onset/Duration: Started Days Ago, Still Present Timing: Constant, Lasting Days Initial Severity: Moderate Current Severity: Moderate Pain Intensity: 5 Pain Scale Used: 0-10 Numeric Chest Pain Location: Diffuse - right sided Chest Pain Radiates: Yes Chest Pain Radiates To:: Shoulder Character: Dull/Aching - Dull, Sharp/Stabbing - Sharp Aggravating Factor(s): Deep Breaths Alleviating Factor(s): Nothing Associated Signs and Symptoms: Positive: Chest Pain, Cough, Other: - positive: gas - Additional Pertinent History Recent Stress Test: Yes - Nuclear medicine stress test showed no evidence for ischemia, normal LVEF - Allergy/Home Medications Allergies/Adverse Reactions: Allergies Allergy/AdvReac Type Severity Reaction Status Date / Time No Known Allergies Allergy Verified 02/08/18 13:52 Home Medications: Home Medications Acetaminophen TAB* [Tylenol TAB*] 325 mg PO Q6H PRN 02/08/18 [History Confirmed 02/08/18] Brimonidine/Timolol OPTH(NF) [Combigan OPHTH (NF)] 1 drop BOTH EYES BID [History Confirmed 02/08/18] Calcium Carbonate/Vitamin D3 [Calcium 600-Vit D3 400 Caplet] 1 tab PO BID [History Confirmed 02/08/18] Dorzolamide/Timolol OPTH (NF) [Cosopt (NF)] 1 drop BOTH EYES BID 02/08/18 [ History Confirmed 02/08/18] Esomeprazole(NF) [Nexium(NF)] 40 mg PO BEDTIME 02/08/18 [History Confirmed 02/08] Furosemide TAB* [Lasix TAB*] 20 mg PO DAILY PRN 02/08/18 [History Confirmed 03/28] Latanoprost 0.005%* [Xalatan 0.005%*] 1 drop BOTH EYES BEDTIME 02/08/18 [ History Confirmed 02/08/18] Lidocaine 5 % TOPICAL TID PRN 02/08/18 [History Confirmed 02/08/18] LoraTADine TAB(NF) [Claritin 10 MG TAB(NF)] 10 mg PO DAILY 02/08/18 [History Confirmed 02/08/18] Metoprolol Succinate XL TAB* [Toprol XL TAB*] 50 mg PO QPM 02/08/18 [History Confirmed 02/08/18] Permethrin 5% CREAM* 1 applic TOPICAL SEE INSTRUCTIONS 02/08/18 [History Confirmed 02/08/18] Pravastatin (NF) [Pravachol (NF)] 40 mg PO BEDTIME 02/08/18 [History Confirmed 02/08/18] Psyllium Husk 1 teasp PO BID 02/08/18 [History Confirmed 02/08/18] Vit C/E/Zn/Coppr/Lutein/Zeaxan [Preservision Areds 2 Softgel] 1 cap PO BID 02/08 [History Confirmed 02/08/18] Warfarin TAB(*) [Coumadin TAB(*)] 2 mg PO MOFR 02/08/18 [History Confirmed 02/08] Warfarin TAB(*) [Coumadin TAB(*)] 4 mg PO SUTUWETHSA 02/08/18 [History Confirmed 02/08/18] PMH/Surg Hx/FS Hx/Imm Hx Previously Healthy: No Endocrine/Hematology History: Denies: Hx Diabetes, Hx Systemic Lupus Erythematosus Cardiovascular History: Reports: Hx Angina, Hx Atrial Fibrillation, Hx Hypercholesterolemia, Hx Hypertension Denies: Hx Congestive Heart Failure, Hx Pacemaker/ICD Respiratory History: Denies: Hx Asthma GI History: Reports: Hx Gastroesophageal Reflux Disease - ON MEDICATION FOR, Hx Hiatal Hernia History: Denies: Hx Dialysis, Hx Renal Disease Musculoskeletal History: Reports: Hx Arthritis - NECK Denies: Hx Rheumatoid Arthritis, Hx Osteoporosis Sensory History: Reports: Hx Cataracts - BILATERAL, Hx Contacts or Glasses - GLASSES, Hx Glaucoma - BILATERAL Denies: Hx Hearing Aid Opthamlomology History: Reports: Hx Cataracts - BILATERAL, Hx Contacts or Glasses - GLASSES, Hx Glaucoma - BILATERAL, Hx Macular Degeneration - Wet Macular Degeneration Psychiatric History: Denies: Hx Panic Disorder - Cancer History Cancer Type, 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 Hx Chemotherapy: No - Surgical History Surgery Procedure, Year, and Place: prostate removal 2007; tonisllectomy at age 8; broken jaw while serving in the [employer] - SX on the jaw; RT knee arthroscopic procedure for meniscus. CATARACTS BILATERAL. pleural biopsy 2016. Hx Anesthesia Reactions: No Infectious Disease History: Yes Infectious Disease History: Reports: Hx Tuberculosis - on CXR Denies: Traveled Outside the [place] in Last 30 Days - Family History Known Family History: Positive: Other - Mother of "old age" after hip injury Negative: Cardiac Disease - Social History Occupation: Retired Lives: Alone Alcohol Use: None Hx Substance Use: No Substance Use Type: Reports: None Hx Tobacco Use: Yes Smoking Status (MU): Former Smoker Amount Used/How Often: 1 1/2 PPD X 25 YEARS+ Review of Systems Negative: Fever Positive: Chest Pain Positive: Cough Positive: Other - positive: gas Positive: no symptoms reported Musculoskeletal: Negative Skin: Negative Neurological: Negative Psychological: Normal All Other Systems Reviewed And Are Negative: Yes Physical Exam - Summary Physical Exam Summary: Appearance: Well-appearing, Appears younger than stated age, moderate pain distress, well-nourished Skin: Warm, color reflects adequate perfusion, dry Head: Normal Head/Face inspection, atraumatic Eyes: Conjunctiva clear ENT: Normal inspection Neck: Supple, no nodes, no JVD Respiratory: Lungs clear, normal breath sounds, no respiratory distress Cardio irregularly irregular, tachycardic, No murmur, pulses normal, brisk capillary refill Abdomen: Soft, nontender Bowel sounds: Present Musculoskeletal: Strength Intact/ROM intact, no calf tenderness, no edema. Psychological: Normal Neuro: Alert, muscle tone normal, no focal deficit Triage Information Reviewed: Yes Vital Signs On Initial Exam: Initial Vitals Temp Pulse Resp BP Pulse Ox 98.0 F 106 18 140/108 94 02/08/18 13:48 02/08/18 13:48 02/08/18 13:48 02/08/18 13:48 02/08/18 13:48 Vital Signs Reviewed: Yes Diagnostics - Vital Signs Vital Signs Temp Pulse Resp BP Pulse Ox 02/08/18 13:48 98.0 F 106 18 140/108 94 - Laboratory Lab Results: Lab Results 02/08/18 Range/Units 14:05 WBC 11.8 H (3.5-10.8) 10^3/ul RBC 4.99 (4.00-5.40) 10^6/ul Hgb 14.4 (14.0-18.0) g/dl Hct 44 (42-52) % MCV 89 (80-94) fL MCH 29 (27-31) pg MCHC 32 (31-36) g/dl RDW 15 (10.5-15) % Plt Count 226 (150-450) 10^3/ul MPV 10.0 (7.4-10.4) fL Neut % (Auto) 81.9 % Lymph % (Auto) 8.3 % [place] % (Auto) 8.4 % Eos % (Auto) 0.9 % Baso % (Auto) 0.5 % Absolute Neuts (auto) 9.6 H (1.5-7.7) 10^3/ul Absolute Lymphs (auto) 1.0 (1.0-4.8) 10^3/ul Absolute Monos (auto) 1.0 H (0-0.8) 10^3/ul Absolute Eos (auto) 0.1 (0-0.6) 10^3/ul Absolute Basos (auto) 0.1 (0-0.2) 10^3/ul Absolute Nucleated RBC 0 10^3/ul Nucleated RBC % 0 Result Diagrams: 02/09/18 07:21 02/09/18 07:21 Lab Statement: Any lab studies that have been ordered have been reviewed, and results considered in the medical decision making process. - Radiology CXR Radiology Interpretation Completed By: Radiologist Summary of Radiographic Findings: PLEURAL-BASED CALCIFICATIONS IN THE RIGHT BASE. UNDERLYING INFILTRATE IN THE. LEFT LUNG FIELD IS CLEAR. ED provider has reviewed this imaging report. - EKG 14:04 Cardiac Rate: Other Rate - Atrial fibrillation at 139 bpm EKG Rhythm: Atrial Fibrillation ST Segment: Non-Specific Ectopy: None EKG Comparison: No Significant Change - when compared with 01/18/18 Summary of EKG Findings: Atrial fibrillation at 139 bpm, nl IVCT, prolonged QTc (536), no acute changes, no significant change compared with EKG done 01/18/18. Re-Evaluation - Re-Evaluation First Eval Re-Evaluation Time: 15:08 Change: Unchanged Comment: PT still reports pain Second Eval Re-Evaluation Time: 15:56 Change: Unchanged Comment: Discussed plan for admission with the patient. Chest Pain Course/Dx - Course Course Of Treatment: An 87 y/o male presents to [facility] with a chief complaint of chest pain which he describes as a dull/stabbing pain since eating a sandwich with horseradish on 02/06/18. He admits to having CP, cough and gas, but denies fever. Hx of a-fib and HTN. The physical exam revealed that the patient appears younger than his stated age. He is in afib with RVR and his INR is supratherapeutic. CXR impression: PLEURAL-BASED CALCIFICATIONS IN THE RIGHT BASE. UNDERLYING INFILTRATE IN THE. LEFT LUNG FIELD IS CLEAR. EKG at 14:04 showed Atrial fibrillation at 139 bpm, nl IVCT, prolonged QTc (536), no acute changes, no significant change compared with EKG done 01/18/18. INR high at 4.80.In the ED course the patient was given Protonix 40 mg IV, morphine and zofran IV. Dx: supratheraputic INR, chest pain, afib with RVR. Case discussed with Dr. Pepper, Hospitalist, who accepted the patient for admission. The patient is agreeable with this plan. - Diagnoses Provider Diagnoses: Chest pain, Supratherapeutic INR, Atrial fibrillation with RVR - Provider Notifications Discussed Care Of Patient With: Yareli Pepper Time Discussed With Above Provider: 16:03 Instructed by Provider To: Admit As Inpatient Discharge - Sign-Out/Discharge Documenting (check all that apply): Patient Departure - admit - Discharge Plan Condition: Good Disposition: ADMITTED TO [facility] - Billing Disposition and Condition Condition: GOOD Disposition: Admitted to [facility] - Attestation Statements Document Initiated by Scribe: Yes Documenting Scribe: Edward Reynoso Provider For Whom Scribe is Documenting (Include Credential): Dr. Lucinda Hernandez MD Scribe Attestation: Edward Soto scribed for Dr. Lucinda Hernandez MD on 02/15/18 at 1943. Scribe Documentation Reviewed: Yes Provider Attestation: The documentation as recorded by the scribe, Edward Reynoso accurately reflects the service I personally performed and the decisions made by me, Dr. Lucinda Hernandez MD Status of Scribe Document: Viewed
[2018-02-08 14:25] LABS: Activated Partial Thrombo Time 51.3 seconds (26.0-36.3); INR 4.8 (0.77-1.02)
[2018-02-08 14:33] LABS: Albumin 4.2 g/dL (3.2-5.2); Albumin/Globulin Ratio 1.3 (1-3); BUN/Creatinine Ratio 17.2 (8-20); Calcium 9.8 mg/dL (8.6-10.3); EGFR Non-African American 71.8 (>60); Globulin 3.2 g/dL (2-4); Magnesium 1.8 mg/dL (1.9-2.7); Potassium 4.1 mmol/L (3.5-5.0); Total Bilirubin 1.1 mg/dL (0.2-1.0); Total Protein 7.4 g/dL (6.4-8.9)
--- OUTSIDE RECORDS SUMMARY | 2018-02-08 14:38 | XMS REPORT | Continuity of Care Document ---
:1930 External Reference #:[id number] Author Name Christine Sparks Care Team Providers Name Role Phone Rc Hutton MD Primary Care Physician Unavailable Payers Type Date Identification Numbers Payment Provider Subscriber Effective: Policy Number: [id number] Medicare Milton Her 1995 PayID: [id number] [address] [place] [address] Policy Number: [id number] [facility] Milton Her PayID: [id number] [address] [place] [address] Advance Directives Description No Information Available Problems Date Description Provider Status Onset: 11/24/2016 Chest pain Tony Mckeon M.D., [facility], Active FASNC Onset: 02/10/2015 Chronic atrial fibrillation Tony Mckeon M.D., [facility], Active FASNC Onset: 02/10/2015 Electrocardiogram abnormal Tony Mckeon M.D., [facility], Active FASNC Family History Date Family Member(s) [...] Unknown 0000 fri and then 4 mg tues, wed, thrus,sat, sun as directed ( adjusted [...] Tablets 250mg 1Pack as per 465.9 Amaury Gaines 2008 - loco Conde, M.D. 2014 Nexium 10/03/ Hx Capsules 40mg 90cap 1 PO qd Amaury Gaines 2007 - sudhir Amaya, M.D. 2014 Flomax 10/03/ Hx Caps ER 0.4mg 90cap 1 PO qd Amaury Gaines 2007 - 24HR sudhir Amaya, .D. 2007 Asa 10/03/ Hx 81mg 90uni 1 [...] CPT Code Status Date Vaccine Lot # [id number] Given 02/15/1998 Pneumovax (History By Patient) 138iu [...] Result H/L Range Note Laboratory test 04/09/2008 [facility] PSA,Diagnosti 0.0 NG/ML 0-[address] [place] [address] [phone] Ua Stat 11/25/2007 [facility] Ua Color YELLOW [address] [place] [address] [phone] Appearance-Urine CLEAR Specific Sweeden-Ur 1.020 1.010-1.030 Esterase-Urine TRACE Abnormal Negative Nitrite NEGATIVE Negative Otpxysjzysbp-Nw-YBV NEGATIVE Negative Protein-Urine NEGATIVE Negative PH-Urine 6.0 5-9 Blood-Urine 2+ Abnormal Negative Ketones-Urine NEGATIVE Negative Bilirubin-Ur NEGATIVE Negative Glucose-Urine NEGATIVE Negative Urinalysis W/Microscopic Stat 11/25/2007 [facility] Ua Color YELLOW [address] [place] [address] [phone] Appearance-Urine CLEAR Specific [place]-Ur 1.020 1.010-1.030 Esterase-Urine TRACE Abnormal Negative Nitrite NEGATIVE Negative Rplrfwpjiivx-Rx-UGL NEGATIVE Negative Protein-Urine NEGATIVE Negative PH-Urine 6.0 5-9 Blood-Urine 2+ Abnormal Negative Ketones-Urine NEGATIVE Negative Bilirubin-Ur NEGATIVE Negative Glucose-Urine NEGATIVE Negative WBC-Urine 20-25 Abnormal 0-5 RBC-Urine 10-15 Abnormal 0-2 Epith Cells-Ur RARE Bacteria-Urine 1+ Laboratory test 10/05/2007 [facility] Release Date 10/13/07 2, 3 [address] [place] [address] [phone] Type & Screen 10/05/2007 [facility] Patient Blood A POSITIVE [address] [place] [address] [phone] Antibody Screen NEGATIVE Laboratory 10/05/2007 [facility] Whole [id number] A 4 test finding [address] Blood,Autologous <SEE NOTE> [place] [address] [facility] [phone] Hemoglobin/Hem 10/05/2007 [facility] Hemoglobin 15.0 g/dL 14. atacrit [address] [place] [address] 8.0 [phone] Hematocrit 43 % 42-52 Laboratory test 07/07/2007 [facility] PSA,Diagnostic 4.38 NG/ML High 0-[address] [place] [address] [phone] 1 * SERUM LEVELS OF PSA MEASURED [...] DATE UNLESS DOCTOR NOTIFIES LAB OTHERWISE. 4 [id number] AP [facility] TRANSFUSED 10/11/07 1221 5 * SERUM LEVELS OF PSA MEASURED USING THE RAGHAV LELO ACCESS HYBRITECH IMMUNOASSAY SHOULD NOT BE INTERPRETED ABSOLUTE EVIDENCE OF THE PRESENCE OR ABSENCE OF DISEASE. THE PSA VALUE SHOULD BE USED IN CONJUNCTION WITH OTHER PERTINENT CLINICAL DIAGNOSTIC PROCEDURES. Procedures Date Code Description Status 01/04/2018 73344 EKG Tracing & Interpretation Completed 11/24/2016 09745 EKG Tracing & Interpretation Completed 10/26/2016 29725 ECHO Transthoracic, Real-Time 2D With Doppler And Color Completed Flow 10/26/2016 72625 ECHO Transthoracic, Real-Time 2D With Doppler And Color Completed Flow 10/04/2016 04308 Stress Test Completed 10/04/2016 20293 Myocardial Perfusion Imaging Tomographic (Spect) Multiple Completed Studies 03/16/2016 01835 EKG Tracing & Interpretation Completed 03/10/2016 94465 ECHO Transthoracic, Real-Time 2D With Doppler And Color Completed Flow 03/03/2015 77062 Stress Test Completed 03/03/2015 43843 Myocardial Perfusion Imaging Tomographic (Spect) Multiple Completed Studies 02/11/2015 60170 ECHO Transthoracic, Real-Time 2D With Doppler And Color Completed Flow 02/10/2015 87904 EKG Tracing & Interpretation Completed 10/04/2007 50356 EKG Tracing & Interpretation Completed Encounters Type Date Location Provider Dx Diagnosis Office Visit 01/04/2018 [facility] Tony Pickard I48.2 Chronic atrial 10:45a Of Kiara Mckeon M.D., fibrillation [facility], FASAZ Office Visit 11/24/2016 [facility] Tony Pickard R07.9 Chest pain, 10:15a Of Kiara Mckeon M.D., unspecified [facility], FASNC I48.2 Chronic atrial fibrillation Office Visit 09/14/2016 3:45p [facility], H92.01 Otalgia, right C.M.A. AT M.D 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, bilateral R42 Dizziness and giddiness Office Visit 06/15/2016 1:30p [facility], H92.01 Otalgia, right C.M.A. AT M.D. 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, bilateral H61.23 Impacted cerumen, bilateral R42 Dizziness and giddiness Office Visit 03/16/2016 [place] Tony Pickard I48.2 Chronic atrial 1:00p Cardiology Brandie Mckeon M.D., fibrillation [facility] FACC, FASLYDIA Office Visit 03/10/2015 Johnnie Pickard I48.2 Chronic atrial 10:00a Cardiology Brandie Mckeon M.D., fibrillation [facility] WILLIE, FASLYDIA Office Visit 02/10/2015 Johnnie Pickard R94.31 Abnormal 1:00p Cardiology Brandie Mckeon M.D., electrocardiogram [facility] WILLIE, [facility] [ECG] [EKG] I48.2 Chronic atrial fibrillation Office Visit 12/25/2008 9:00a DO Not Use Kiara Gaines 465.9 URI Upper AT Mino Conde M.D. Respiratory Infections Acute Unspec Sites Office Visit 01/24/2008 3:30p [place] Jerome Gaines 723.1 Cervicalgia Assoc AT Erika Conde [facility] Office Visit 10/04/2007 11:00a [place]ne Gaines V72.81 Examination Assoc AT Erika Conde [facility] Cardiovascular 530.81 Esophageal Reflux 723.1 Cervicalgia Plan of Treatment 01/04/2018 - Tony Mckeon M.D., [facility], FKLGCU65.2 Chronic atrial fibrillationComments:As discussed, I feel your heart is doing well. Please continue to exercise.Follow up:one year
--- OUTSIDE RECORDS SUMMARY | 2018-02-08 14:38 | XMS REPORT | Continuity of Care Document ---
:1930 External Reference #:[id number] Author Name Christine Sparks Care Team Providers Name Role Phone cR Hutton MD Primary Care Physician Unavailable Payers Type Date Identification Numbers Payment Provider Subscriber Effective: Policy Number: [id number] Medicare Milton Her 1995 PayID: [id number] [address] [place] [address] Policy Number: [id number] [facility] Milton Her PayID: [id number] [address] [place] [address] Advance Directives Description No Information Available Problems Date Description Provider Status Onset: 11/24/2016 Chest pain Tony Mckeon M.D., [facility], Active FASNC Onset: 02/10/2015 Chronic atrial fibrillation Tony Mckeon M.D., [facility], Active FASNC Onset: 02/10/2015 Electrocardiogram abnormal Tony Mckeon M.D., [facility], Active FASNC Family History Date Family [...] CPT Code Status Date Vaccine Lot # [id number] Given 02/15/1998 Pneumovax (History By Patient) 138iu [...] Result H/L Range Note Laboratory test 04/09/2008 [facility] PSA,Diagnosti 0.0 NG/ML 0-[address] [place] [address] [phone] Ua Stat 11/25/2007 [facility] Ua Color YELLOW [address] [place] [address] [phone] Appearance-Urine CLEAR Specific Gilboa-Ur 1.020 1.010-1.030 Esterase-Urine TRACE Abnormal Negative Nitrite NEGATIVE Negative Hufaefuadftg-Nv-IPV NEGATIVE Negative Protein-Urine NEGATIVE Negative PH-Urine 6.0 5-9 Blood-Urine 2+ Abnormal Negative Ketones-Urine NEGATIVE Negative Bilirubin-Ur NEGATIVE Negative Glucose-Urine NEGATIVE Negative Urinalysis W/Microscopic Stat 11/25/2007 [facility] Ua Color YELLOW [address] [place] [address] [phone] Appearance-Urine CLEAR Specific Gilboa-Ur 1.020 1.010-1.030 Esterase-Urine TRACE Abnormal Negative Nitrite NEGATIVE Negative Ukedeeskwpcd-Cp-RVO NEGATIVE Negative Protein-Urine NEGATIVE Negative PH-Urine 6.0 5-9 Blood-Urine 2+ Abnormal Negative Ketones-Urine NEGATIVE Negative Bilirubin-Ur NEGATIVE Negative Glucose-Urine NEGATIVE Negative WBC-Urine 20-25 Abnormal 0-5 RBC-Urine 10-15 Abnormal 0-2 Epith Cells-Ur RARE Bacteria-Urine 1+ Laboratory test 10/05/2007 [facility] Release Date 10/13/07 2, 3 [address] [place] [address] [phone] Type & Screen 10/05/2007 [facility] Patient Blood A POSITIVE [address] [place] [address] [phone] Antibody Screen NEGATIVE Laboratory 10/05/2007 [facility] Whole [id number] A 4 test finding [address] Blood,Autologous <SEE NOTE> [place] [address] [facility] [phone] Hemoglobin/Hem 10/05/2007 [facility] Hemoglobin 15.0 g/dL 14. atacrit [address] [place] [address] 8.0 [phone] Hematocrit 43 % 42-52 Laboratory test 07/07/2007 [facility] PSA,Diagnostic 4.38 NG/ML High 0-[address] [place] [id number] [phone] * SERUM LEVELS OF PSA MEASURED [...] DATE UNLESS DOCTOR NOTIFIES LAB OTHERWISE. 4 [id number] AP [facility] TRANSFUSED 10/11/07 1221 5 * SERUM LEVELS OF PSA MEASURED USING THE RAGHAV LELO ACCESS HYBRITECH IMMUNOASSAY SHOULD NOT BE INTERPRETED ABSOLUTE EVIDENCE OF THE PRESENCE OR ABSENCE OF DISEASE. THE PSA VALUE SHOULD BE USED IN CONJUNCTION WITH OTHER PERTINENT CLINICAL DIAGNOSTIC PROCEDURES. Procedures Date Code Description Status 01/04/2018 14116 EKG Tracing & Interpretation Completed 11/24/2016 37903 EKG Tracing & Interpretation Completed 10/26/2016 69541 ECHO Transthoracic, Real-Time 2D With Doppler And Color Completed Flow 10/26/2016 43744 ECHO Transthoracic, Real-Time 2D With Doppler And Color Completed Flow 10/04/2016 98216 Stress Test Completed 10/04/2016 08729 Myocardial Perfusion Imaging Tomographic (Spect) Multiple Completed Studies 03/16/2016 68904 EKG Tracing & Interpretation Completed 03/10/2016 96607 ECHO Transthoracic, Real-Time 2D With Doppler And Color Completed Flow 03/03/2015 58673 Stress Test Completed 03/03/2015 78370 Myocardial Perfusion Imaging Tomographic (Spect) Multiple Completed Studies 02/11/2015 08718 ECHO Transthoracic, Real-Time 2D With Doppler And Color Completed Flow 02/10/2015 99976 EKG Tracing & Interpretation Completed 10/04/2007 52769 EKG Tracing & Interpretation Completed Encounters Type Date Location Provider Dx Diagnosis Office Visit 01/04/2018 [place] [facility] Tony Pickard I48.2 Chronic atrial 10:45a Of Kiara Mckeon M.D., fibrillation [facility], FASAK Office Visit 11/24/2016 [facility] Tony Pickard R07.9 Chest pain, 10:15a Of Kiara Mckeon M.D., unspecified [facility], FASNC I48.2 Chronic atrial fibrillation Office Visit 09/14/2016 3:45p [facility], H92.01 Otalgia, right C.M.A. AT M.D ear [place] H93.13 Tinnitus, bilateral R42 Dizziness and giddiness Office Visit 06/15/2016 1:30p [facility], H92.01 Otalgia, right C.M.A. AT M.D. ear [place] H93.13 Tinnitus, bilateral H61.23 Impacted cerumen, bilateral R42 Dizziness and giddiness Office Visit 03/16/2016 [place] Tony Pickard I48.2 Chronic atrial 1:00p Cardiology Brandie Mckeon M.D., fibrillation [facility] FACC, FASLYDIA Office Visit 03/10/2015 Johnnie Pickard I48.2 Chronic atrial 10:00a Cardiology Brandie Mckeon M.D., fibrillation [facility] WILLIE, FASLYDIA Office Visit 02/10/2015 Johnnie Pickard R94.31 Abnormal 1:00p Cardiology Brandie Mckeon M.D., electrocardiogram [facility] WILLIE, [facility] [ECG] [EKG] I48.2 Chronic atrial fibrillation Office Visit 12/25/2008 9:00a DO Not Use Kiara Gaines 465.9 URI Upper AT Mino Conde M.D. Respiratory Infections Acute Unspec Sites Office Visit 01/24/2008 3:30p [place] Jerome Gaines 723.1 Cervicalgia [facility] AT Erika Conde [facility] Office Visit 10/04/2007 11:00a [place] V72.81 Examination Assoc AT Erika Conde [facility] Cardiovascular 530.81 Esophageal Reflux 723.1 Cervicalgia Plan of Treatment 01/04/2018 - Tony Mckeon M.D., [facility], ZKHXLG45.2 Chronic atrial fibrillationComments:As discussed, I feel your heart is doing well. Please continue to exercise.Follow up:one year
[2018-02-08 14:52] LABS: TSH (Thyroid Stimulating Horm) 1.95 mcIU/mL (0.34-5.60)
[2018-02-08] MEDS ORDERED: Pantoprazole IV* 40 MG IV ONE (15:54)
[2018-02-08] MEDS ORDERED: Magnesium Sulfate 2 GM IV* 2 GM/50 ML BAG IVPB ONE (16:08)
[2018-02-08] MEDS ORDERED: Morphine VIAL* 4 MG/ML VIAL (1 ml vial) IV ONE (16:34)
[2018-02-08] MEDS ORDERED: Ondansetron INJ* 2 MG/ML VIAL IV ONE (16:34)
[2018-02-08 16:53] LABS: Urine Appearance Cloudy; Urine Bacteria Absent (Absent); Urine Bilirubin Negative (Negative); Urine Blood Negative (Negative); Urine Color Yellow; Urine Glucose Negative (Negative); Urine Ketones 1+ (Negative); Urine Nitrite Negative (Negative); Urine Protein Negative (Negative); Urine Red Blood Cell Trace(0-2/hpf) (Absent); Urine Specific Gravity 1.025 (1.010-1.030); Urine Urobilinogen Negative (Negative); Urine White Blood Cell 1+(6-10/hpf) (Absent)
[2018-02-08] MEDS ORDERED: Acetaminophen TAB* 325 MG PO PRN (17:00)
[2018-02-08] MEDS ORDERED: Metoprolol Succinate XL TAB* 50 MG PO SCH (17:00)
[2018-02-08] MEDS ORDERED: Furosemide TAB* 20 MG PO PRN (17:03)
[2018-02-08] MEDS ORDERED: Lidocaine 5% OINT TOPICAL PRN (17:03)
[2018-02-08] MEDS ORDERED: PERMETHRIN 5% TOPICAL SCH (17:30)
--- NOTE | 2018-02-08 19:29 | HP ---
CC: Dr. Rc Hutton * HISTORY AND PHYSICAL: DATE OF ADMISSION: 02/08/18 PROVIDER: Divina Arora NP ATTENDING PHYSICIAN: Dr. Yareli Pepper * (dictated by Divina Arora NP). PRIMARY CARE PROVIDER: Dr. Rc Hutton. CHIEF COMPLAINT: Chest pain. HISTORY OF PRESENT ILLNESS: Mr. Her is an 87-year-old male with a past medical history significant for atrial fibrillation, on Coumadin; hypertension; history of pulmonary nodules; GERD; history of hiatal hernia, who presented to the emergency room today with chest pain. The patient states that he developed left-sided chest pain that started on Tuesday. It was achy feeling. He does report that he believes this chest pain started after eating a sandwich with horseradish on it and he does have a history of hiatal hernia. He does report that the pain radiates to his left shoulder and left neck. He also reports that it hurts to take a deep breath and has increased pain with cough and exertion. He denies any fever, chills. Denies any increased swelling. He does have a cough with clear secretions. He denies any hemoptysis. He does report shortness of breath after walking up the stairs. Denies any nausea, vomiting, diarrhea, abdominal pain, hematuria, dysuria. Denies any focal weakness or sensory loss. Denies any dysphagia, arthralgias, myalgias, rashes, lesions, open sores, depression, or anxiety. Given his complaint of left- sided chest pain, we were asked to see and evaluate him to rule him out for acute coronary syndrome. Mr. Her was recently admitted in the hospital 01/17/18 to 01/18/18. At that time, he was ruled out for acute coronary syndrome. He did have a negative stress test. His nuclear stress test showed no compelling evidence of stress- induced ischemia, fixed thinning of the apex which may be physiological and reflects previous infarct. He had normal EF. On 01/18/18, he was discharged home. The patient reports that his pain had subsided and he was feeling well until Tuesday when the left-sided chest pain represented. Due to his concern of left-sided chest pain not improving and his increased shortness of breath with exertion with worsening of left-sided chest pain with exertion, he presented to the emergency room for further evaluation. He had routine lab work drawn in the emergency room, which was within normal limits. He does have a slightly elevated white count of 11.8 and his INR was elevated at 4.80. BNP was 305. His troponins were negative at 0.01 x2. Again , given his symptoms of left-sided chest pain, we will admit him to rule out acute coronary syndrome. PAST MEDICAL HISTORY: Significant for: 1. Atrial fibrillation. 2. Hypertension. 3. Pulmonary nodules with negative biopsy in 2016. 4. GERD. 5. Prostate cancer. PAST SURGICAL HISTORY: 1. Prostatectomy. 2. Tonsillectomy. 3. Jaw surgery. 4. Knee surgery. HOME MEDICATIONS: Include: 1. Warfarin 2 mg p.o. q.p.m. Tuesday and Tuesday. 2. Warfarin 4 mg p.o. Tuesday, Tuesday, Tuesday, , Tuesday. 3. Pravastatin 20 mg p.o. at bedtime. 4. Toprol 50 mg p.o. q.p.m. 5. Meclizine 12.5 mg 4 times a day as needed for dizziness. 6. Xalatan eye drops 0.005% one drop to both eyes at bedtime. 7. Nexium 40 mg p.o. at bedtime. 8. Cosopt 1 drop to both eyes b.i.d. 9. Combigan 1 drop to both eyes b.i.d. 10. AREDS2 one cap p.o. b.i.d. 11. Acetaminophen 325 mg p.o. q.6 hours as needed for pain. ALLERGIES: No known drug allergies. FAMILY HISTORY: The patient has a brother with stent placement. No reported history of diabetes within the family. He does report he has a brother and sister both have had lung cancer. SOCIAL HISTORY: The patient is a former smoker, he quit in 1984. Prior to that , he smoked 1-1/2 packs a day for 25 years. The patient does report rare alcohol use. He denies any illicit drug use. Surrogate decision makers in the event he is unable to make his own decisions are his daughter, Betty Pepper and son, Neri Her. He is a full code. REVIEW OF SYSTEMS: A review of 14 systems was completed. All other pertinent positives and negatives are mentioned in the HPI. Remaining review of systems were all negative. PHYSICAL EXAMINATION GENERAL: At this time, Mr. Her is an 87-year-old male. He appears comfortable, resting on the stretcher in the emergency room. He does not appear to be in any acute distress. VITAL SIGNS: Blood pressure 118/92; heart rate is between 98 and 110, atrial fibrillation on the monitor; respirations are 12; O2 saturation 97% on room air ; temperature was 98.0. HEENT: Head is atraumatic, normocephalic. Eyes: EOMs are intact. Sclerae anicteric and not pale. Oral mucosa appeared to be moist. NECK: Supple. LUNGS: Diminished in the bases bilaterally. No wheezes, rales, or rhonchi. CARDIAC: S1, S2. Irregular rate and rhythm. No murmurs, rubs, or gallops. ABDOMEN: Soft and nontender. Bowel sounds are present x4. EXTREMITIES: Pedal pulses are +2 bilaterally. He does have mild 1+ pitting edema to bilateral lower extremities. He is able to move all 4 extremities with 5/5 strength. NEUROLOGIC: He is awake, alert, and oriented x3. Speech is clear. Thought process is intact. No gross focal deficits are noted. SKIN: Intact. DIAGNOSTIC STUDIES/LAB DATA: WBCs are 11.8, RBCs 4.99, hemoglobin 14.4, hematocrit was 44, platelet count was 226. INR was 4.80, APTT was 51.3, D- dimer was 397. Sodium 138, potassium 4.1, chloride 102, carbon dioxide was 29, anion gap was 7, BUN was 17, creatinine 0.99, glucose was 108, lactic acid was 1.3, calcium 9.8, mag 1.8. ASTs were 22, ALTs were 22, alkaline phosphatase was 91. CK was 47. Troponin was 0.01 x2. BNP was 305. TSH was 1.95 and thyroxine T4 was 10.42. Urine was yellow, cloudy, pH was 5.0, 1.025 specific gravity, urine protein was negative, ketones were 1+. Urine blood, nitrites, bilirubin, urobilinogen were all negative. Urine leukocyte esterase was trace, wbc's were 1+, rbc's were trace, squamous epithelial cells were present, bacteria was negative, glucose was negative, ascorbic acid was also negative. He did have a chest x-ray in the emergency room, which showed pleural based calcifications in the right base, underlying infiltrate and the left lung field is clear. EKG showed atrial fibrillation at a rate of 139. ASSESSMENT AND PLAN: Mr. Her is an 87-year-old male with a past medical history significant for atrial fibrillation, hypertension, gastroesophageal reflux disease, hiatal hernia, who presented to the emergency room with complaints of left-sided chest pain since Tuesday. He will be admitted under observation to rule out acute coronary syndrome. 1. Chest pain. I suspect that there is a low risk that this chest pain is related to acute coronary syndrome as the patient did have a recent negative nuclear stress test on 01/18/18. The patient does report that he developed left -sided chest pain, started on Tuesday. It is worse with deep breath, coughing and exertion. It is not reproducible with palpation to the left side of the chest. At this time, we will continue to trend his troponins. I will repeat an EKG in the morning. If his chest pain persists or becomes worse, we will repeat EKG as needed. He can have nitro sublingual under the tongue as needed if there is any change in the characteristics of his chest pain. He does report that his chest pain is associated with cough, deep breath and exertion. I suspect that this could be a component of costochondritis. I will give him a one-time small dose of Toradol to see if that assists in relieving any of his pain symptoms. He did have a chest x- ray in the emergency room and there was concerning of right lower lobe infiltration. The patient has been afebrile. He has had a cough times several months with clear sputum production. He is not hypoxic. His O2 saturation on room air is 97%. At this time, the patient does not appear to be infectious, so I will hold off on starting antibiotics at this time. 2. Atrial fibrillation. The patient will continue on metoprolol 50 mg p.o. I did have them give a dose in the emergency room as he was slightly tachycardic at a rate of 119 on the monitor during his examination. He is also on Coumadin. His INR is supratherapeutic at 4.80. I will hold his Coumadin today. We will place him on telemetry and continue to monitor his heart on telemetry overnight. 3. Supratherapeutic INR. I will hold his Coumadin tonight and repeat an INR in the a.m. 4. Gastroesophageal reflux disease. We will continue on Protonix while here in the hospital. 5. History of pulmonary nodules. Chest x-ray does not show any new pulmonary nodules. He did have a lung biopsy in 2016 that did not show any reports of malignancy at that time. The patient can have outpatient further workup if deemed necessary. 6. Elevated D-dimer. The patient does have an elevated D-dimer with a supratherapeutic INR. It is unlikely that the patient has a pulmonary embolism. In the event he did have a pulmonary embolism, treatment would be anticoagulation. The patient is already anticoagulated. This is very low on the differential for the cause of his chest pain due to the patient has not had any recent prolonged travels or calf pain. 7. Diet: He can have a heart-healthy, decaf okay diet. 8. DVT prophylaxis: He is on Coumadin. With his supratherapeutic INR, I will hold his Coumadin today. 9. Code status: He is a full code. 10. Disposition: He will be placed on inpatient observation. Anticipate that the patient will be discharged home when medically stable. TIME SPENT: Time spent on this admission was 60 minutes, greater than half that time was spent [id number] with the patient obtaining my history and physical, the other half of the time was spent going over my plan of care and implementing my plan of care. I have discussed this with my attending, Dr. Yareli Pepper, and she is in agreement with my plan. DIVINA ARORA, EVENT COORDINATOR [id number]/CPS #: [id number] LUANN
[2018-02-08] MEDS: CMCS: Dorzolamide/Timolol OPTH (NF) 10 ML BOT BOTH EYES SCH (20:32)
[2018-02-08] MEDS: CMCS: Brimonidine/Timolol 0.2%/0.5% OPTH(NF) SOL 5 ML BOTH EYES SCH (20:32)
[2018-02-08] MEDS: Atorvastatin* 10 MG TAB PO SCH (20:33)
[2018-02-08] MEDS: Latanoprost 0.005%* 2.5 ml BTL BOTH EYES SCH (22:48)
[2018-02-09 07:41] LABS: ABS Basophils 0 10^3/ul (0-0.2); ABS Eosinophils 0.2 10^3/ul (0-0.6); ABS Lymphocytes 0.9 10^3/ul (1.0-4.8); ABS Monocytes 1.3 10^3/ul (0-0.8); ABS Neutrophils 7.4 10^3/ul (1.5-7.7); ABS Nucleated RBC 0 10^3/ul; Eosinophil % 1.7 %; Hematocrit 40 % (42-52); Hemoglobin 13.3 g/dl (14.0-18.0); Lymphocyte % 8.9 %; Mean Corpuscular HGB Conc 33 g/dl (31-36); Mean Corpuscular Hemoglobin 29 pg (27-31); Mean Corpuscular Volume 90 fL (80-94); Nucleated Red Blood Cells % 0; Platelet Count 177 10^3/ul (150-450); Red Cell Distribution Width 15 % (10.5-15); White Blood Count 9.7 10^3/ul (3.5-10.8)
[2018-02-09 07:50] LABS: INR 4.98 (0.77-1.02)
[2018-02-09 08:02] LABS: Calcium 9.2 mg/dL (8.6-10.3); EGFR Non-African American 76.3 (>60); HDL Cholesterol 28.5 mg/dL; Potassium 4.7 mmol/L (3.5-5.0)
[2018-02-09] MEDS: Cetirizine* 10 MG TAB PO SCH (08:20)
[2018-02-09] MEDS: CMCS: Brimonidine/Timolol 0.2%/0.5% OPTH(NF) SOL 5 ML BOTH EYES SCH ×2 (08:21→23:41)
[2018-02-09] MEDS: CMCS: Dorzolamide/Timolol OPTH (NF) 10 ML BOT BOTH EYES SCH ×2 (08:21→23:41)
[2018-02-09] MEDS ORDERED: Perflutren Lipid Microsphere* 3 ML VIAL ONE (10:31)
[2018-02-09] MEDS ORDERED: Metoprolol Tartrate IV* 1 MG/ML 5 ML VIAL IV ONE (12:43)
[2018-02-09] MEDS ORDERED: Diltiazem IV* 5 MG/ML 5 ML VIAL (for loading dose/IV Push) (25 MG) IV SLOW PU ONE (17:10)
--- NOTE | 2018-02-09 17:21 | PN ---
Subjective Date of Service: 02/09/18 Interval History: Patient seen and examined. States chest pain improved, no SOB, no further complaints. Pending ECHO. Objective Active Medications: Acetaminophen (Tylenol Tab*) 650 mg PO Q4H PRN PRN Reason: FEVER/PAIN Atorvastatin Calcium (Lipitor*) 10 mg PO BEDTIME [facility]; Protocol Last Admin: 02/08/18 20:33 Dose: 10 mg Brimonidine/Timolol (Combigan Ophth (Nf)) 1 drop BOTH EYES BID [facility]; Protocol Last Admin: 02/09/18 08:21 Dose: Not Given Cetirizine HCl (Zyrtec*) 10 mg PO DAILY [facility] Last Admin: 02/09/18 08:20 Dose: 10 mg Diltiazem HCl (Diltiazem Iv*) 10 mg IV SLOW PU ONCE ONE Stop: 02/09/18 17:11 Dorzolamide/Timolol (Cosopt (Nf)) 1 drop BOTH EYES BID [facility]; Protocol Last Admin: 02/09/18 08:21 Dose: Not Given Latanoprost (Xalatan 0.005%*) 1 drop BOTH EYES BEDTIME [facility] Last Admin: 02/08/18 22:48 Dose: 1 drop Permethrin (Permethrin 5% Cream*) 1 applic TOPICAL .SEE INSTRUCTIONS [facility] Vital Signs - 8 hr 02/09/18 02/09/18 11:22 15:29 Temperature 97.9 F 96.9 F Pulse Rate 90 97 Respiratory 18 20 Rate Blood Pressure 122/86 130/88 (mmHg) O2 Sat by Pulse 97 99 Oximetry Oxygen Devices in Use Now: Nasal Cannula Appearance: alert, NAD Eyes: No Scleral Icterus, PERRLA Ears/Nose/Mouth/Throat: NL Teeth, Lips, Gums, Mucous Membranes Moist Neck: NL Appearance and Movements; NL JVP, Trachea Midline Respiratory: Symmetrical Chest Expansion and Respiratory Effort, Clear to Auscultation Cardiovascular: NL Sounds; No Murmurs; No JVD, No Edema, - - periods of tachycardia Abdominal: NL Sounds; No Tenderness; No Distention Extremities: No Edema, No Clubbing, Cyanosis Skin: No Rash or Ulcers Neurological: Alert and Oriented x 3, NL Gait, NL Muscle Strength and Tone Nutrition: Taking PO's Result Diagrams: 02/09/18 07:21 02/09/18 07:21 Additional Lab and Data: Lab Results 02/08/18 Range/Units 14:05 WBC 11.8 H (3.5-10.8) 10^3/ul RBC 4.99 (4.00-5.40) 10^6/ul Hgb 14.4 (14.0-18.0) g/dl Hct 44 (42-52) % MCV 89 (80-94) fL MCH 29 (27-31) pg MCHC 32 (31-36) g/dl RDW 15 (10.5-15) % Plt Count 226 (150-450) 10^3/ul MPV 10.0 (7.4-10.4) fL Neut % (Auto) 81.9 % Lymph % (Auto) 8.3 % Banks % (Auto) 8.4 % Eos % (Auto) 0.9 % Baso % (Auto) 0.5 % Absolute Neuts (auto) 9.6 H (1.5-7.7) 10^3/ul Absolute Lymphs (auto) 1.0 (1.0-4.8) 10^3/ul Absolute Monos (auto) 1.0 H (0-0.8) 10^3/ul Absolute Eos (auto) 0.1 (0-0.6) 10^3/ul Absolute Basos (auto) 0.1 (0-0.2) 10^3/ul Absolute Nucleated RBC 0 10^3/ul Nucleated RBC % 0 Microbiology and Other Data: Microbiology 02/08/18 16:20 Urine Culture - Final Urine No Growth (<1,000 CFU/mL) Assess/Plan/Problems-Billing Assessment: This is an 87 year old male with history of GERD and afib admitted for recurrent , reproducible left sided chest pain and now in chronic afib with RVR. - Patient Problems (1) Afib Code(s): I48.91 - UNSPECIFIED ATRIAL FIBRILLATION SNOMED Code(s): 05973798 Comment: - Periods of non-sustained RVR throughout the day - Repeat EKG with persistent afib with RVR - Gave one dose IV lopressor iwth moderate effect, however patient's rate is back in the 140's - Trial one dose cardizem IVP now and monitor, may initiate cardizem instead of increasing BB - Anticuagulated with coumadin which was supratherapeutic at admission, coumadin held, follow INR tomorrow - Pending ECHO (2) Chest pain Code(s): R07.9 - CHEST PAIN, UNSPECIFIED SNOMED Code(s): 35500044 Comment: - Atypical/reproducible with deep inspiration - Low risk stress last month - NSAID trialed with some improvement (3) GERD (gastroesophageal reflux disease) Code(s): K21.9 - GASTRO-ESOPHAGEAL REFLUX DISEASE WITHOUT ESOPHAGITIS SNOMED Code(s): 154064195 Comment: - Continue PPI (4) DVT prophylaxis Code(s): MTY5321 - SNOMED Code(s): 148264897 Comment: - On coumadin (5) Full code status Code(s): Z78.9 - OTHER SPECIFIED HEALTH STATUS SNOMED Code(s): 093226098 Status and Disposition: Inpatient, anticipate DC home when medically optimized
--- NOTE | 2018-02-09 18:15 | ECHO ---
Patient: TAWANDA MARLOW [facility] Rec#: [id number] : 1930 Date: 02/09/2018 Age: 87y Height: 196 cm / 77.2 in Weight: 105.5 kg / 232.5 lbs Sex: M BSA: 2.4 Room#: [facility] [place] Admit Date#: 02/08/2018 Type: Inpatient Referring: Anna Tena Reading: Vik Hodge MD Wool Puller: Jannet Rocha RN RDCS CC: Rc Hutton MD Transthoracic Echocardiogram BP: 117/79 HR: 97 Rhythm: A-Fib Findings History: A. fib, HTN, pulmonary nodules, former smoker Technical Comments: The study is technically limited due to poor apical windows. The study is technically limited due to the patient's smoking history. Left Ventricle: The left ventricular chamber size is normal. Mild to moderate concentric left ventricular hypertrophy is observed. Global left ventricular wall motion and contractility are within normal limits. Left ventricular systolic function is at the lower limits of normal. The estimated ejection fraction is 50-55%. The assessment of diastolic function is non-diagnostic. Left Atrium: The left atrium is mild to moderately dilated. Right Ventricle: The right ventricle is slightly dilated. The right ventricular global systolic function is low normal. Right Atrium: The right atrium is moderately dilated. Aortic Valve: The aortic valve leaflets are mildly thickened. There is aortic annular calcification. There is no evidence of aortic regurgitation. There is no evidence of aortic stenosis. Mitral Valve: The mitral valve leaflets are mildly thickened. There is trace to mild mitral regurgitation. There is no evidence of mitral stenosis. Tricuspid Valve: The tricuspid valve leaflets are normal. There is trace to mild tricuspid regurgitation. There is evidence of mild pulmonary hypertension. There is no tricuspid stenosis. Pulmonic Valve: The pulmonic valve appears normal. There is a trace pulmonic regurgitation. There is no pulmonic stenosis. Pericardium: There is a small pericardial effusion. There are no signs of significant hemodynamic compromise. The pericardial effusion is seen adjacent to the left ventricle. Aorta: There is mild dilatation of the ascending aorta. There is no dilatation of the aortic arch. There is no dilation of the aortic root. Pulmonary Artery: The main pulmonary artery is not well visualized. Venous: The venous system is not well visualized. The inferior vena cava is not visualized. Contrast: Definity was used to optimize study. A total of 3 ml of diluted Definity was given IV. Summary: There are changes noted when compared to the previous study done on 10/26/2016, pericardial effusion is new. Conclusions The study is technically limited due to poor apical windows. The left ventricular chamber size is normal. Mild to moderate concentric left ventricular hypertrophy is observed. The estimated ejection fraction is 50-55%. The assessment of diastolic function is non-diagnostic. The left atrium is mild to moderately dilated. The right ventricle is slightly dilated. There is trace to mild mitral regurgitation. There is trace to mild tricuspid regurgitation. There is evidence of mild pulmonary hypertension. There is a trace pulmonic regurgitation. There is a small pericardial effusion. There are no signs of significant hemodynamic compromise. The pericardial effusion is seen adjacent to the left ventricle. There is mild dilatation of the ascending aorta. Measurements Name Value Normal Range RVIDd (AP) 2D 3.2 cm (0.9 - 2.6) RVDdMajor (2D) 3.7 cm (2.2 - 4.4) RAd ISD 4CH 6 cm (3.4 - 4.9) RA (A4C)W 4.6 cm (2.9 - 4.6) IVSd (2D) 1.3 cm (0.6 - 1) LVPWd (2D) 1.2 cm (0.6 - 1) LVIDd (2D) 4.9 cm (3.6 - 5.4) LVIDs (2D) 3.8 cm - LV FS (2D) 22 % (25 - 45) Aortic Annulus 2.1 cm (1.4 - 2.6) Ao root diameter (2D) 3.5 cm (2.1 - 3.5) Ascending Ao 3.6 cm (2.1 - 3.4) LA dimension (AP) 2D 4.5 cm (2.3 - 3.8) LAd ISD 4CH 5.8 cm (2.9 - 5.3) LA ISD 4CH W 4.5 cm (2.5 - 4.5) Name Value Normal Range MV E-wave Vmax 0.7 m/sec - MV deceleration time 189 msec - LV septal e' Vmax 0.1 m/sec - LV lateral e' Vmax 0.08 m/sec - LV E:e' septal ratio 7 ratio - LV E:e' lateral ratio 8.8 ratio - Name Value Normal Range AV Vmax 0.95 m/sec - AV VTI 15.8 cm - AV peak gradient 4 mmHg - AV mean gradient 2 mmHg - LVOT Vmax 0.82 m/sec - LVOT VTI 12.3 cm - LVOT peak gradient 3 mmHg - LVOT mean gradient 2 mmHg - LUCIUS Vmax 0.34 m/sec - Name Value Normal Range TR Vmax 2.7 m/sec - TR peak gradient 29 mmHg - RAP 8 mmHg - RVSP 37 mmHg - Name Value Normal Range PV Vmax 0.5 m/sec -
[2018-02-09] MEDS ORDERED: Furosemide IV* 10 MG/ML 2 ML VIAL (20 MG) IV ONE (18:50)
[2018-02-09] MEDS: Diltiazem TAB* 30 MG PO SCH (20:06)
[2018-02-09] MEDS: Atorvastatin* 10 MG TAB PO SCH (20:45)
[2018-02-09] MEDS ORDERED: Metoprolol Succinate XL TAB* 50 MG PO SCH (21:00)
[2018-02-09] MEDS: Latanoprost 0.005%* 2.5 ml BTL BOTH EYES SCH (23:42)
[2018-02-09] MEDS ORDERED: Omeprazole CAP (NF) 20 MG CAP.DR PO SCH (23:45)
[2018-02-10] MEDS: Diltiazem TAB* 30 MG PO SCH ×3 (01:06→12:28)
[2018-02-10] MEDS: Cetirizine* 10 MG TAB PO SCH (08:17)
[2018-02-10] MEDS: CMCS: Brimonidine/Timolol 0.2%/0.5% OPTH(NF) SOL 5 ML BOTH EYES SCH (08:17)
[2018-02-10] MEDS: CMCS: Dorzolamide/Timolol OPTH (NF) 10 ML BOT BOTH EYES SCH (08:17)
[2018-02-10 11:14] VITALS: BP 125/83
[2018-02-10] MEDS ORDERED: Omeprazole CAP (NF) 20 MG CAP.DR PO SCH (21:00)
--- NOTE | 2018-02-16 19:08 | DS ---
CC: Dr. Mckeon; Dr. Hutton; Dr. Pepper DISCHARGE SUMMARY: DATE OF ADMISSION: 02/08/18 DATE OF DISCHARGE: 02/10/18 PRIMARY CARE PROVIDER: Dr. Rc Hutton. LIBRARY CUSTOMER SERVICE CLERK: Dr. Mckeon. ATTENDING FOR THIS ADMISSION: Dr. Yareli Pepper. MY ATTENDING FOR TODAY: Dr. Yareli Pepper. HOSPITAL COURSE: Please see admission H and P from [facility], dated 02/08/18; however, in short, this is an 87-year-old male patient with past medical history significant for AFib, hypertens ion, pulmonary nodules, GERD, and hiatal hernia, who presented to the emergency department with a lef t-sided chest pain. The patient denied any prodromal symptoms. No further accompanying symptoms such as diaphoresis or shortness of breath or palpitations. The patient had been recently admitted prior to this admission from 01/17/18 through 01/18/18. At that time, he did have a negative stress test and had a full cardiac workup. He was discharged to home. However, when he came back to the emergen cy department for this latest episode of chest pain, he was found to have a mildly elevated white cou nt and a mildly elevated INR of 4.80. His BNP was also slightly elevated at 305; however, his tropon ins remained negative. In either case, the patient was admitted for his left-sided chest pain. It w as reproducible with palpation. It was thought at that time that it may be related to a costochondri tis. The patient was appropriately medicated for his atrial fibrillation. He has been maintained on metoprolol 50 mg daily and his Coumadin was held. Over the course of the next 48 hours, he did have transient episodes of tachycardia. He is in chronic AFib. He did not have a sustained rapid ventri cular response, seemed to be waxing and waning. The patient did have a small bolus of Lopressor IV, had some moderate effect, did respond well to one dose of Cardizem IV push and then was maintained on Cardizem short-acting thereafter. We continued to hold the patient's Coumadin for the supratherapeu tic INR. He had some NSAIDs for his left-sided chest wall pain which seemed to improve. Overall, on day of discharge, the patient was chest pain- free. His heart rate remained controlled. Also of no te, he did have a transthoracic echocardiogram being that his BNP was mildly elevated. Results of th at showed an EF of 50% to 55%. Left ventricular chamber size was normal. There was [id number] concentric left ventricular hypertrophy. Assessment of diastolic function was nondiagnostic. Left atrium mild to moderately dilated, right ventricle slightly dilated, trace mitral regurg, trace mild tricuspid regurg, evidence of mild pulmonary hypertension, trace pulmonic regurg, a small pericardial effusion. No signs of significant hemodynamic compromise. The patient was discharged in stable con dition. All questions were answered. The patient stated his understanding of his discharge instruct ions and followups. The patient had essentially negative troponins. He had 1 value of 0.04; however, the patient remaine d at 0.01 for 2 values prior to and 2 values after. We associated his single bump in troponin to his rapid rate from his uncontrolled AFib. DISCHARGE DIAGNOSES: 1. Left-sided chest pain, likely musculoskeletal in nature, resolved. 2. History of atrial fibrillation with periods of rapid ventricular response, now resolved. 3. History of gastroesophageal reflux disease and hiatal hernia. DISCHARGE MEDICATIONS: Include new medications: 1. Cardizem 120 mg long-acting daily. 2. Metoprolol succinate 50 mg in the evening. Home meds: 1. Combigan ophthalmic 1 drop both eyes 2 times a day. 2. Cosopt 1 drop both eyes 2 times a day. 3. Nexium 40 mg at bedtime. 4. Lasix 20 mg daily. 5. Xalatan eye drops 1 drop both eyes at bedtime. 6. Topical lidocaine as needed. 7. PreserVision AREDS2 softgel 1 cap p.o. b.i.d. 8. Topical permethrin cream as needed. 9. Pravastatin 40 mg at bedtime. 10. Tylenol 325 mg q.6 hours as needed. 11. Calcium/vitamin D supplement 1 tab b.i.d. 12. Coumadin 2 mg on Tuesday and Tuesday; 4 mg on Tuesday, Tuesday, Tuesday, , and Tuesday. 13. Claritin 10 mg p.o. daily. 14. Psyllium husk 1 teaspoon p.o. b.i.d. REVIEW OF SYSTEMS: On the day of discharge, the patient denies any fever, fatigue, or chills. No di zziness. No shortness of breath, no palpitations. No headache. He has mild left-sided chest pain wi th deep inspiration. No abdominal pain, no nausea, no vomiting. No musculoskeletal complaints and n o further constitutional complaints. PHYSICAL EXAM: The patient is alert, awake, in no acute distress. Vital signs are blood pressure 12 5/83, heart rate 86, respiratory rate 18, O2 saturation 92% on room air with a temperature of 97.9. HEENT: The patient is atraumatic, normocephalic. PERRLA with nonicteric sclerae. Oral mucosa is mo ist. Neck is supple and nontender. No JVD noted and no carotid bruit auscultated. Cardiovascular: S1, S2 present. No gallops or rubs noted. Rate is controlled. Rhythm is irregular. He has atrial f ibrillation on telemetry. Abdomen is soft, nontender, nondistended. Positive bowel sounds in all 4 quadrants. was deferred. Musculoskeletal: There is no clubbing, no cyanosis, no edema. He has +2 distal pulses palpable. He has some mild tenderness of the upper left ribcage into the axilla wit h palpation and again with deep inspiration. He has full range of motion. Neurologic: He is grossl y intact with no focal deficits. Psychiatric: Cooperative and appropriate. DIAGNOSTIC STUDIES/LAB DATA: WBCs 9.7, RBCs 4.50, hemoglobin 13.3, hematocrit 40, platelets 177. So dium 137, potassium 4.7, chloride 103, CO2 28, BUN 16, creatinine 0.94, GFR 76.3, glucose 101, calciu m 9.2. Troponins as noted above. Triglycerides 67, cholesterol 89, LDL 47, HDL 28.5. TSH is 1.95. INR was actually initially bumped up to 4.98 and then back down to 4.00 at discharge. Urinalysis di d not show any acute infective process and the echocardiogram is as noted above. DISPOSITION: Discharged to home. FOLLOWUPS: The patient was instructed to follow up with Dr. Hutton, his primary care provider, on . Also follow up with Dr. Mckeon from Cardiology, appointment to be scheduled. ACTIVITY: As tolerated. DIET: Heart-healthy as tolerated. TIME SPENT: Approximately 35 minutes interfacing with the patient and other providers for this patient's discharge plan of care. ULI CHU, NBA [id number]/[facility] #: [id number]
== END 2018-02-10 14:41 | disposition home or self-care (01) ==
LOC: ED 13:46 → MEDTELE 17:00
PROVIDERS: ADMIT Hospitalist; ATTEND Internal Medicine
DX: R07.9 Chest pain, unspecified (principal); I48.91 Unspecified atrial fibrillation; I10 Essential (primary) hypertension; R05 Cough; Z87.891 Personal history of nicotine dependence; Z86.711 Personal history of pulmonary embolism; K21.9 Gastro-esophageal reflux disease without esophagitis; Z85.46 Personal history of malignant neoplasm of prostate; Z79.01 Long term (current) use of anticoagulants
CPT/HCPCS: 36415; 71045; 80048; 80053; 80061; 81003; 81015; 82550; 82553; 83605; 83735; 83880; 84436; 84443; 84484; 85025; 85379; 85610; 85730; 87086; 93005; 93306; 96365; 96374; 96375; 99284; 99285; A9270-GY; C8929; G0378; J1940; J2270; J2405; J3475; J3490